=== PATIENT | female | born 1970 | race Caucasian/White ===

== ENCOUNTER 2018-06-16 00:41 | Emergency (ER) | payer OTHER ==
--- OUTSIDE RECORDS SUMMARY | 2018-06-16 00:43 | XMS REPORT | Clinical Summary ---
:1970 Author Organization [facility] Address [address] [place] [address] Care Team Providers Name Role Phone Moe Manriquez MD Primary Care Provider Allergies Active Allergy Reactions Severity Noted Date Comments Codeine 05/12/2017 Propoxyphene N-Acetaminophen 05/12/2017 Levofloxacin 05/12/2017 Pregabalin 05/12/2017 Morphine (Pf) 05/12/2017 Penicillins 05/12/2017 Medications No known medications Active Problems No known active problems Family History Medical History Relation Name Comments Diabetes Father Hypertension Father Diabetes Mother Heart disease Mother Hypertension Mother Relation Name Status Comments Father Mother Social History Tobacco Use Types Packs/Day Years Used Date Never Assessed Sex Assigned at Date Recorded Not on file Job Start Date Occupation Industry Not on file Not on file Not on file Travel History Travel Start Travel End No recent travel history available. Last Filed Vital Signs Not on file Plan of Treatment Health Maintenance Due Date Last Done Comments MMR VACCINES (1 of 1 - Standard 1970 series) VARICELLA VACCINES (1 of 2 - 2-dose 1982 adolescent series) CERVICAL CANCER SCREENING 1990 INFLUENZA VACCINE 02/23/2018 HEPATITIS B VACCINES Aged Out No longer eligible based on patient's age to complete this topic IPV VACCINES Aged Out No longer eligible based on patient's age to complete this topic MENINGOCOCCAL VACCINE Aged Out No longer eligible based on patient's age to complete this topic Results Not on fileafter 06/15/2017 Insurance Payer Benefit Plan / Group Subscriber ID Type Phone Address AETNA AETNA PPO OPEN CHOICE xxxxxxxxx PPO Advance Directives Patient has advance care planning documents on file. For more information, please contact:Darshan [address] [place] [address]
[2018-06-16] MEDS ORDERED: HYDROCODONE/APAP 5/325 MG TAB ONE (01:08)
[2018-06-16] MEDS ORDERED: LIDOCAINE 1% MPF 5 ML VIAL ONE (01:26)
[2018-06-16] MEDS ORDERED: LIDOCAINE 1% MPF 2 ML AMPULE ONE (02:04)
[2018-06-16] MEDS ORDERED: SMZ./TMP. 800/160 MG TABLET ONE (02:22)
[2018-06-16] MEDS ORDERED: CLINDAMYCIN HCL 150 MG CAP ONE (02:22)
[2018-06-16] MEDS ORDERED: TETANUS & DIPHTHERIA TOX,ADULT 0.5 ML VIAL ONE (02:39)
--- NOTE | 2018-06-16 02:39 | EDPHYS ---
Physician Documentation [facility] Name: Fanta Mcfarlane Age: 48 yrs Sex: Female : 1970 Arrival Date: 06/16/2018 Time: 00:44 Bed 24 Private MD: Moe Manriquez V ED Physician Clifford Herndon HPI: 06/16 02:34 This 48 yrs old Female presents to ER via Ambulatory with complaints of Dog jmm Bite. 02:34 The patient was bitten on the lower lip. Onset: The symptoms/episode began/occurred jmm acutely. Animal information: Animal's vaccinations are up to date. Secondary to the bite the patient reports This is a 48 year old female with a history of hlp that presents to the ED with a lower lip laceration after attempting to kiss her dog. Patient is not utd on tetanus immunization. . 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 N/A - Hysterectomy kr2 Historical: - Allergies: 00:59 Ampicillin; kr2 00:59 Codeine; kr2 00:59 Darvocet-N 100; kr2 00:59 Levaquin; kr2 00:59 Morphine; kr2 00:59 Demerol; kr2 - Home Meds: 01:06 atorvastatin oral oral [Active]; pantoprazole oral oral [Active]; amitriptyline Oral kr2 [Active]; aspirin 81 mg oral TbEC [Active]; Dulcolax Oral [Active]; Diurex oral oral [Active]; B-12 DOTS oral oral [Active]; Vitamin D3 oral oral [Active]; Magnesium Oxide Oral [Active]; Super B Maxi Complex oral oral [Active]; Baclofen Oral [Active]; Probiotic oral oral [Active]; Melatonin Oral [Active]; Turemic [Active]; - PMHx: 00:59 Degenerative disc disease; Hyperlipidemia; Diverticulitis; kr2 - PSHx: 00:59 Colon resection; Pelvicoscopy; Hysterectomy; Cysts removal; Carpal Tunnel Repair; kr2 - Immunization history:: Adult Immunizations unknown. - Social history:: Smoking status: Patient/guardian denies using tobacco. - Ebola Screening: : No symptoms or risks identified at this time. ROS: 02:34 Constitutional: Negative for fever, chills, and weight loss, Cardiovascular: Negative jmm for chest pain, palpitations, and edema, Respiratory: Negative for shortness of breath, cough, wheezing, and pleuritic chest pain. 02:34 Skin: Positive for laceration(s). 02:34 All other systems are negative. Exam: 02:34 Constitutional: This is a well developed, well nourished patient who is awake, alert, jmm and in no acute distress. 02:34 Eyes: EOMI, no conjunctival erythema appreciated ENT: Moist Mucus Membranes Chest/axilla: Normal chest wall appearance and motion. Cardiovascular: Regular rate and rhythm. No edema appreciated Respiratory: Normal respirations, no respiratory distress appreciated Abdomen/GI: Non distended, soft Back: Normal ROM MS/ Extremity: Moves all extremities, no obvious deformities appreciated, no edema noted to the lower extremities Neuro: Awake and alert, normal gait 02:34 Head/face: 2 cm laceration noted ot the lower lip. does not appear to cross the armin border. I cm laceration noted to the oral mucosas of the lower lip. 02:34 Skin: lacerations noted to the lower lip. 02:34 Neuro: Orientation: is normal, Mentation: is normal, Memory: is normal. Vital Signs: 01:09 BP 133 / 67; Pulse 105; Resp 18; Temp 98; Pulse Ox 95% on R/A; Weight 83.46 kg; Height kr2 5 ft. 7 in. (170.18 cm); Pain 10/10; 03:06 BP 132 / 78; Pulse 78; Resp 16; Pulse Ox 99% on R/A; Pain 0/10; ls4 01:09 Body Mass Index 28.82 (83.46 kg, 170.18 cm) kr2 Laceration: 02:34 Wound Repair of 2cm ( 0.8in ) subcutaneous laceration to lower lip. [facility] neuro/vascular/tendon intact. Anesthesia: Local anesthetic administered with 2 mls of 1% lidocaine. Wound prep: Extensive cleansing with betadine by me, Copious irrigation. Skin closed with 5 6-0 Prolene using simple sutures and sterile technique. Patient tolerated well. MDM: 00:59 [facility]. [facility] 02:34 Data reviewed: vital signs, nurses notes. Counseling: I had a detailed discussion with [facility] the patient and/or guardian regarding: the historical points, exam findings, and any diagnostic results supporting the discharge/admit diagnosis, the need for outpatient follow up, to return to the emergency department if symptoms worsen or persist or if there are any questions or concerns that arise at home. ED course: patient advised of the risk of infection due to dog bite and given strict return precautions. patient understood and agrees with the plan of care. . Administered Medications: 01:19 CANCELLED (Duplicate Order): Marcaine (0.25 %) 5 ml Infiltration once bb 02:09 Drug: Lidocaine (1 %) 5 ml {Note: administered by Isaac PA.} Volume: 5 ml; Route: ls4 Infiltration; 02:41 Follow up: Response: No adverse reaction ls4 02:10 Drug: Marcaine (0.5 %) 1 ml {Note: administered by Isaac PA.} Volume: 10 ml; Route: ls4 Infiltration; 02:40 Follow up: Response: No adverse reaction ls4 02:28 Drug: Bactrim (160 mg-800 mg (DS) 1 tablet Route: PO; ls4 02:41 Follow up: Response: No adverse reaction ls4 02:28 Drug: Clindamycin 300 mg Route: PO; ls4 02:41 Follow up: Response: No adverse reaction ls4 02:29 Drug: Tetanus-Diphtheria Toxoid Adult 0.5 ml {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 Exp: ls4 07/13/2020. Lot #: [id number]. } Route: IM; Site: left deltoid; 02:52 Follow up: Response: No adverse reaction ls4 Disposition: 05:17 Co-signature as Attending Physician, Clifford Herndon MD I agree with the assessment and tw4 plan of care. Disposition: 06/16/18 02:39 Discharged to Home. Impression: Lower lip laceration, Dog Bite. - Condition is Stable. - Discharge Instructions: Facial Laceration, Animal Bite. - Prescriptions for Clindamycin HCl 300 mg Oral Capsule - take 1 capsule by ORAL route every 6 hours for 10 days; 40 capsule. Bactrim DS 800- 160 mg Oral Tablet - take 1 tablet by ORAL route every 12 hours for 10 days; 20 tablet. - Medication Reconciliation Form, Thank You Letter, Antibiotic Education, Prescription Opioid Use form. - Follow up: Leonard Mendoza MD; When: 2 - 3 days; Reason: Recheck today's complaints, Continuance of care, Re-evaluation by your physician. Signatures: Isaac Restrepo PA PA jmm Ballard, Brenda, RN RN Nadja Webb RN RN kr2 Clifford Herndon MD MD tw4 Carmen Hamilton RN RN ls4 Corrections: (The following items were deleted from the chart) 01:19 01:19 Marcaine (0.25 %) 5 ml Infiltration once ordered. brittni elkins 03:07 02:39 06/16/2018 02:39 Discharged to Home. Impression: Lower lip laceration; Dog Bite. ls4 Condition is Stable. Forms are Medication Reconciliation Form, Thank You Letter, Antibiotic Education, Prescription Opioid Use. Follow up: Leonard Mendoza; When: 2 - 3 days; Reason: Recheck today's complaints, Continuance of care, Re-evaluation by your physician. [place]
--- NOTE | 2018-06-16 02:39 | ER ---
Nurse's Notes [facility] Name: Fanta Mcfarlane Age: 48 yrs Sex: Female : 1970 Arrival Date: 06/16/2018 Time: 00:44 Bed 24 Private MD: Moe Manriquez V Diagnosis: Lower lip laceration;Dog Bite Presentation: 06/16 00:54 Presenting complaint: Patient states: "It was my fault, I was messing with the dog, she kr2 was growling and I still got in her face and she bit me". Transition of care: patient was not received from another setting of care. Onset of symptoms was June 16, 2018 at 00:10. Risk Assessment: Do you want to hurt yourself or someone else? Patient reports no desire to harm self or others. Initial Sepsis Screen: Does the patient meet any 2 criteria? No. Patient's initial sepsis screen is negative. Does the patient have a suspected source of infection? No. Patient's initial sepsis screen is negative. Care prior to arrival: None. 00:54 Method Of Arrival: Ambulatory kr2 00:54 Acuity: MANSI 3 kr2 Triage Assessment: 01:06 Bite description: bite sustained to lower lip and lower armin border by a dog, kr2 animal information: vaccination(s) is current, was sustained 30-60 minutes ago. General: Appears in no apparent distress. uncomfortable, Behavior is cooperative, anxious, crying. Pain: Complains of pain in mouth Pain currently is 10 out of 10 on a pain scale. Quality of pain is described as burning, aching, tender, throbbing, Is continuous, Alleviated by nothing. Aggravated by touch. 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 N/A - Hysterectomy kr2 Historical: - Allergies: 00:59 Ampicillin; kr2 00:59 Codeine; kr2 00:59 Darvocet-N 100; kr2 00:59 Levaquin; kr2 00:59 Morphine; kr2 00:59 Demerol; kr2 - Home Meds: 01:06 atorvastatin oral oral [Active]; pantoprazole oral oral [Active]; amitriptyline Oral kr2 [Active]; aspirin 81 mg oral TbEC [Active]; Dulcolax Oral [Active]; Diurex oral oral [Active]; B-12 DOTS oral oral [Active]; Vitamin D3 oral oral [Active]; Magnesium Oxide Oral [Active]; Super B Maxi Complex oral oral [Active]; Baclofen Oral [Active]; Probiotic oral oral [Active]; Melatonin Oral [Active]; Turemic [Active]; - PMHx: 00:59 Degenerative disc disease; Hyperlipidemia; Diverticulitis; kr2 - PSHx: 00:59 Colon resection; Pelvicoscopy; Hysterectomy; Cysts removal; Carpal Tunnel Repair; kr2 - Immunization history:: Adult Immunizations unknown. - Social history:: Smoking status: Patient/guardian denies using tobacco. - Ebola Screening: : No symptoms or risks identified at this time. Screenin:10 Abuse screen: Denies threats or abuse. Denies injuries from another. Nutritional kr2 screening: No deficits noted. Tuberculosis screening: No symptoms or risk factors identified. Fall Risk None identified. Assessment: 01:30 General: Appears uncomfortable. Pain: Complains of pain in mouth and lower armin ls4 border and lower lip Pain currently is 7 out of 10 on a pain scale. Neuro: No deficits noted. Cardiovascular: No deficits noted. Respiratory: No deficits noted. Derm: Skin is intact, laceration to lower lip Skin is pink, warm \\T\\ dry. Reports pain that is 7 out of 10 on a pain scale. since dog bite. Musculoskeletal: No deficits noted. 02:51 Reassessment: Patient and/or family updated on plan of care and expected duration. Pain ls4 level reassessed. Patient is alert, oriented x 3, equal unlabored respirations, skin warm/dry/pink. see PA note for lac repair. Pt tolerated well. Pt denies pain. . Vital Signs: 01:09 BP 133 / 67; Pulse 105; Resp 18; Temp 98; Pulse Ox 95% on R/A; Weight 83.46 kg; Height kr2 5 ft. 7 in. (170.18 cm); Pain 10/10; 03:06 BP 132 / 78; Pulse 78; Resp 16; Pulse Ox 99% on R/A; Pain 0/10; ls4 01:09 Body Mass Index 28.82 (83.46 kg, 170.18 cm) kr2 ED Course: 00:44 Patient arrived in ED. es 00:44 Moe Manriquez MD is Private Physician. es 00:53 Isaac Restrepo PA is PHCP. [facility] 00:53 Clifford Herndon MD is Attending Physician. jm 00:54 Nadja Blake, MONET is Primary Nurse. kr2 00:56 Triage completed. kr2 01:10 Arm band placed on. kr2 01:12 Patient has correct armband on for positive identification. Bed in low position. Call kr2 light in reach. Side rails up X 1. Adult w/ patient. Pulse ox on. NIBP on. Door closed. Head of bed elevated. 01:28 police department called to notify animal control of dog bite. Dispatcher took ls4 information and will report to his [place]. Pt states her dog does have rabies vaccination. 01:31 No provider procedures requiring assistance completed. ls4 02:38 Leonard Mendoza MD is Referral Physician. jmm 03:06 Patient did not have IV access during this emergency room visit. ls4 Administered Medications: 01:19 CANCELLED (Duplicate Order): Marcaine (0.25 %) 5 ml Infiltration once bb 02:09 Drug: Lidocaine (1 %) 5 ml {Note: administered by Isaac STEPHEN} Volume: 5 ml; Route: ls4 Infiltration; 02:41 Follow up: Response: No adverse reaction ls4 02:10 Drug: Marcaine (0.5 %) 1 ml {Note: administered by Isaac STEPHEN} Volume: 10 ml; Route: ls4 Infiltration; 02:40 Follow up: Response: No adverse reaction ls4 02:28 Drug: Bactrim (160 mg-800 mg (DS) 1 tablet Route: PO; ls4 02:41 Follow up: Response: No adverse reaction ls4 02:28 Drug: Clindamycin 300 mg Route: PO; ls4 02:41 Follow up: Response: No adverse reaction ls4 02:29 Drug: Tetanus-Diphtheria Toxoid Adult 0.5 ml {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 Exp: ls4 07/13/2020. Lot #: [id number]. } Route: IM; Site: left deltoid; 02:52 Follow up: Response: No adverse reaction ls4 Outcome: 02:39 Discharge ordered by . jm 03:05 Discharged to home ambulatory, with family. ls4 03:05 Condition: good 03:05 Discharge instructions given to patient, family, Instructed on discharge instructions, follow up and referral plans. no drinking with medication, no driving heavy equipment, medication usage, safety practices, Demonstrated understanding of instructions, follow-up care, medications, Prescriptions given X 2. 03:07 Patient left the ED. ls4 Signatures: Isaac Restrepo PA PA jmm Salyer, Edna es Reaves, Karey, RN RN kr2 Carmen Hamilton RN RN ls4 Magdalena Mittal RN bb
[2018-06-16 05:30] VITALS: TEMP 98
[2018-06-16 05:31] VITALS: BP 132/78; O2SAT 99
== END 2018-06-16 03:07 | disposition home or self-care (01) ==
LOC: ER 00:41
PROC: 0CQ1XZZ Repair Lower Lip, External Approach (ICD-10-PCS; principal; 2018-06-16)
DX: S01.511A Laceration without foreign body of lip, initial encounter (principal); W54.0XXA Bitten by dog, initial encounter; Y93.89 Activity, other specified; Y92.9 Unspecified place or not applicable; Z23 Encounter for immunization; Z79.82 Long term (current) use of aspirin; Z88.1 Allergy status to other antibiotic agents; Z88.5 Allergy status to narcotic agent; E78.5 Hyperlipidemia, unspecified
CPT/HCPCS: 90714; 99283; J2001

== ENCOUNTER 2021-01-01 14:13 | Inpatient (IN) | payer OTHER ==
--- OUTSIDE RECORDS SUMMARY | 2021-01-01 14:17 | XMS REPORT | Continuity of Care Document ---
:1970 Author Organization [facility] t Address [address] [place] [address] Care Team Providers Name Role Phone Declan NAIR Primary Care Physician Only, Test Attending Clinician Unavailable Doctor Unassigned, Name Attending Clinician Unavailable Problems This patient has no known problems. Allergies, Adverse Reactions, Alerts Allergy Allergy Status Severity Reaction(s) Onset Inactive Treating Comm ents Source Name Type Date Date Clinician Codeine [facility]i Active 2016-07 [place] ty to 0-18 [facility] adverse 00:00: st reaction 00 s to drug Propoxyp [facility] Active 2016-07 [place] ty to 0-18 [facility] N-Acetam adverse 00:00: st inophen reaction 00 s to drug Levoflox [place] Active 2016-07 [place] ty to 0-18 [facility] adverse 00:00: st reaction 00 s to drug Pregabal [facility] Active 2016-07 [place] ty to 0-18 [facility] adverse 00:00: st reaction 00 s to drug Morphine [facility] Active 2016-07 [place] (Pf) ty to 0-18 [facility] adverse 00:00: st reaction 00 s to drug Penicill [facility] Active 2016-07 [place] ty to 0-18 [facility] adverse 00:00: st reaction 00 s to drug Family History Family Member Diagnosis Comments Start Date Stop Date Source Natural mother Diabetes [place] [facility] Natural mother Heart disease [place] [facility] Natural mother Hypertension [place] [facility] Natural father Diabetes [place] [facility] Natural father Hypertension [facility] Social History Social Habit Start Date Stop Date Quantity Comments Source Sex Ass[birth year] Darshan Hernandez [facility]ist 00:00:00 00:00:00 Medications This patient has no known medications. Procedures This patient has no known procedures. Plan of Care Planned Activity Planned Date Details Comments Source Future Scheduled 2021-02-23 INFLUENZA VACCINE [place] [facility] 00:00:00 [code = INFLUENZA VACCINE] Future Scheduled 2019 BREAST CANCER [facility]od[facility] Test 00:00:00 SCREENING [code = BREAST CANCER SCREENING] Future Scheduled 2019 COLONOSCOPY SCREENING [place] [facility] 00:00:00 [code = COLONOSCOPY SCREENING] Future Scheduled 2019 SHINGLES VACCINES [place] [facility] 00:00:00 (#1) [code = SHINGLES VACCINES (#1)] Future Scheduled 1990 Screening for [facility] thodist Test 00:00:00 malignant neoplasm of cervix (procedure) [code = 894940346] Future Scheduled 1981 COVID-19 VACCINE (1) [facility] 00:00:00 [code = COVID-19 VACCINE (1)] Encounters Start End Encounter Admission Attending Care Care Encounter Source Date/Time Date/Time Type Type Clinicians Facility Department ID 2020-07-03 2020-07-03 Laboratory Only, Adc [facility] [id number] 08:03:29 08:18:29 Only Test [place] [id number] [place] [id number] [place] [id number] 2020-07-03 2020-07-03 Orders Doctor HUGO [id number] 00:00:00 00:00:00 Only Unassigned, [place] [id number] [place] [facility] [id number] Results This patient has no known results.
[2021-01-01 15:00] LABS: Absolute Lymphocytes (CBC) 2.4 K/uL (0.7-4.9); Basophils % 0.8 % (0-1.3); Hematocrit 38.9 % (36.0-45.0); Lymphocytes % 27.7 % (15.3-44.8); MPV 7.6 fL (7.6-11.3); RBC Red Blood Cell Count 4.26 M/uL (3.86-4.86)
[2021-01-01 15:24] LABS: ALT/SGPT 53 U/L (12-78); AST/SGOT 38 U/L (15-37); Albumin 3.8 g/dL (3.4-5.0); Alkaline Phosphatase 103 U/L (45-117); BUN Blood Urea Nitrogen 20 mg/dL (7-18); Bicarbonate 25 mmol/L (21-32); Bilirubin Direct < 0.1 mg/dL (0-0.2); Bilirubin Total 0.4 mg/dL (0.2-1.0); Glucose Level 139 mg/dL (74-106); Lipase 98 U/L (73-393); Potassium 4.1 mmol/L (3.5-5.1); Protein, Total 7.6 g/dL (6.4-8.2); Sodium Level 143 mmol/L (136-145)
[2021-01-01] MEDS ORDERED: ONDANSETRON 4 MG/2 ML VIAL ONE (15:48)
[2021-01-01] MEDS ORDERED: NA CHLORIDE 0.9% 1,000 ML ONE (15:48)
[2021-01-01] MEDS ORDERED: PROMETHAZINE INJ 25 MG/ML AMP ONE ×2 (15:50→22:50)
--- NOTE | 2021-01-01 16:19 | RAD REPORT ---
EXAM DESCRIPTION: CTAbdomen Pelvis W Contrast - 01/01/2021 4:09 pm CLINICAL HISTORY: Abdominal pain. hematochezia;Abd pain COMPARISON: Abdomen Pelvis W Contrast dated 05/06/2017; CT ABD PELVIS W CONTRAST dated 09/30/2015; C T ABD PELVIS W CONTRAST dated 10/29/2014; CT ABD PELVIS W CONTRAST dated 01/29/2014 TECHNIQUE: Biphasic CT imaging of the abdomen and pelvis was performed with 100 ml non-ionic IV cont rast. All CT scans are performed using dose optimization technique as appropriate and may include automated exposure control or mA/KV adjustment according to patient size. FINDINGS: The lung bases are clear. The liver demonstrates diffuse fatty infiltration. The spleen, pancreas, adrenal glands and kidneys a re within normal limits. No bowel obstruction, free air, free fluid or abscess. The appendix is normal. Postsurgical changes are present involving the sigmoid colon. No evidence of significant lymphadenopathy. No suspicious bony findings. IMPRESSION: No acute intra-abdominal or pelvic finding. Diffuse fatty liver.
--- NOTE | 2021-01-01 16:44 | EDPHYS ---
Physician Documentation [facility] Name: Fanta Mcfarlane Age: 50 yrs Sex: Female : 1970 Arrival Date: 01/01/2021 Time: 14:16 Bed 14 Private MD: Moe Manriquez V ED Physician Raciel Woodall HPI: 01/01 14:59 This 50 yrs old Female presents to ER via Ambulatory with complaints of jr8 Bloody Stools. 14:59 Onset: The symptoms/episode began/occurred acutely, today. Modifying factors: The jr8 symptoms are alleviated by nothing, The symptoms are aggravated by bowel movement. Associate signs and symptoms: Pertinent positives: abdominal pain in the right lower quadrant. The patient has not experienced similar symptoms in the past. The patient has been recently seen by a physician:. Patient stated that she had colonoscopy this past for routine check as she had diverticulitis with resection in past and precancerous polyps. Stated that Dr. Joseph took one other polyp out and a biopsy of some scar tissue that she knows of but without any other complications. Stated that a few days ago had right sided abdominal pain and bloating feeling. Today without pain but had two bloody bowel movements . [employer]ER: 14:57 LMP N/A - Hysterectomy tw2 Historical: - Allergies: 14:35 Ampicillin; tw2 14:35 Codeine; tw2 14:35 Darvocet-N 100; tw2 14:35 Demerol; tw2 14:35 Levaquin; tw2 14:35 Morphine; tw2 14:55 Zofran; "doesnt work"; tw2 - Home Meds: 14:55 atorvastatin 10 mg oral tab 1 tab once daily [Active]; pantoprazole 40 mg oral TbEC 1 tw2 tab once daily [Active]; amitriptyline 25 mg Oral tab 1 tab once daily [Active]; aspirin 81 mg Oral chew 1 tab once daily [Active]; Dulcolax (bisacodyl) 5 mg Oral TbEC 1 tab [Active]; diurex ultra [Active]; Vitamin B-12 1,000 mcg Oral tab [Active]; magnesium oxide 500 mg Oral cap [Active]; baclofen 20 mg Oral tab 1 tab 3 times per day [Active]; Super B Complex + C 150 mg oral tab [Active]; probiotic multi enzyme [Active]; melatonin 3 mg Oral tab [Active]; tumeric 1000 mg [Active]; tramadol 50 mg Oral tab 1 tab every 4 hours [Active]; - PMHx: 14:35 Diverticulitis; Degenerative disc disease; Hyperlipidemia; tw2 - PSHx: 14:35 Colon resection; Pelvicoscopy; Hysterectomy; Cysts removal; Carpal Tunnel Repair; tw2 14:55 fibroid removed from R cheek; cyst removed from groin; left breast biopsy, benign; tw2 - Immunization history:: Adult Immunizations. - Social history:: Smoking status: . ROS: 14:59 Eyes: Negative for injury, pain, redness, and discharge, ENT: Negative for injury, jr8 pain, and discharge, Neck: Negative for injury, pain, and swelling, Cardiovascular: Negative for chest pain, palpitations, and edema, Respiratory: Negative for shortness of breath, cough, wheezing, and pleuritic chest pain, Back: Negative for injury and pain, MS/Extremity: Negative for injury and deformity, Skin: Negative for injury, rash, and discoloration, Neuro: Negative for headache, weakness, numbness, tingling, and seizure. 14:59 Abdomen/GI: Positive for abdominal pain, hematochezia . Exam: 14:59 Eyes: Pupils equal round and reactive to light, extra-ocular motions intact. Lids and jr8 lashes normal. Conjunctiva and sclera are non-icteric and not injected. Cornea within normal limits. Periorbital areas with no swelling, redness, or edema. ENT: Nares patent. No nasal discharge, no septal abnormalities noted. Tympanic membranes are normal and external auditory canals are clear. Oropharynx with no redness, swelling, or masses, exudates, or evidence of obstruction, uvula midline. Mucous membranes moist. Neck: Trachea midline, no thyromegaly or masses palpated, and no cervical lymphadenopathy. Supple, full range of motion without nuchal rigidity, or vertebral point tenderness. No Meningismus. Cardiovascular: Tachycardic with a normal S1 and S2. No gallops, murmurs, or rubs. Normal PMI, no JVD. No pulse deficits. Respiratory: Lungs have equal breath sounds bilaterally, clear to auscultation and percussion. No rales, rhonchi or wheezes noted. No increased work of breathing, no retractions or nasal flaring. Abdomen/GI: Soft, non-tender, with normal bowel sounds. No distension or tympany. No guarding or rebound. No evidence of tenderness throughout. Back: No spinal tenderness. No costovertebral tenderness. Full range of motion. Skin: Warm, dry with normal turgor. Normal color with no rashes, no lesions, and no evidence of cellulitis. MS/ Extremity: Pulses equal, no cyanosis. Neurovascular intact. Full, normal range of motion. Neuro: Awake and alert, GCS 15, oriented to person, place, time, and situation. Motor strength 5/5 in all extremities. Sensory grossly intact. 14:59 Constitutional: The patient appears alert, awake, anxious. Vital Signs: 14:25 BP 126 / 99; Pulse 133; Resp 19; Temp 97.9(TE); Pulse Ox 97% on R/A; tw2 15:36 BP 121 / 79; Pulse 110; Resp 22 S; Pulse Ox 96% on R/A; jd3 17:06 Pulse 107; Resp 18 S; Pulse Ox 99% on R/A; jd3 17:37 BP 126 / 75; Pulse 110; Resp 17 S; Pulse Ox 97% on R/A; jd3 18:36 BP 102 / 83; Pulse 97; Resp 18 S; Pulse Ox 98% on R/A; jd3 19:33 BP 109 / 67; Pulse 104; Resp 16; Pulse Ox 99% ; jm8 20:10 BP 131 / 70; Pulse 101; Resp 16; Pulse Ox 99% on R/A; jm8 20:44 BP 106 / 65; Pulse 94; Resp 16; Pulse Ox 97% on R/A; jm8 21:00 BP 100 / 73; Pulse 104; Resp 16; Pulse Ox 99% on R/A; jm8 22:00 BP 94 / 54; Pulse 110; Resp 20; Pulse Ox 97% on R/A; jm8 23:00 BP 89 / 50; Pulse 96; Resp 16; Pulse Ox 100% on R/A; jm8 01/02 00:00 BP 95 / 61; Pulse 79; Resp 16; Pulse Ox 100% on R/A; jm8 00:14 BP 95 / 52; Pulse 79; Resp 16; Pulse Ox 100% on R/A; jm8 MDM: 01/01 14:28 Patient medically screened. jr8 16:42 Data reviewed: vital signs, nurses notes, lab test result(s), radiologic studies, CT jr8 scan, and as a result, I will admit patient. Data interpreted: Pulse oximetry: on room air is 96 %. Interpretation: normal. Counseling: I had a detailed discussion with the patient and/or guardian regarding: the historical points, exam findings, and any diagnostic results supporting the discharge/admit diagnosis, lab results, radiology results, the need for further work-up and treatment in the hospital. 21:54 ED course: Patient became hypotensive and had another bloody bowel movement. Patient jr8 receiving 2 units blood down here now and will be transfused at faster rate and will be upgraded to ICU. wind operations supervisor notified along with Dr. Joseph. 22:10 ED course: Patient continues to decline. More pale and tried to get out of bed to use jr8 restroom after I instructed her that bedside commode is an absolutely necessary at this point. Patient has syncopal episode on toilet with present. No injury. I told them again not to get out of bed. I have also escalated to have more blood given along with FFP. Dr. Joseph called again at this point patient needs to be transferred to higher level of care for embolic intervention or general surgery . ED course: of patient has been continually agitated about situation and why they first had not gone up stairs. Then he questioned why blood is taking so long and now why we didn't transfer earlier. I explained to him the best that I could that patient came in with normal H/H. No indication of blood transfusion at that time. Dr. Manriquez saw patient as well and was admitted but that I chose to keep her down here for close observation because she looked more pale then I liked and had them redraw H/H. That's when I saw her drop by about 3 points. Explained to them at that time that we needed to start blood given the bowel movements continued and that she is now at 10.[address] Joseph agreed with and that I wanted to further watch her down here. Further explained that we upgraded her to ICU and Dr. Joseph had been kept in loop entire time. That we needed to give more blood and FFP to stabilize now that she is hypotensive. Would activate mass transfusion and trying to transfer. Patients continued to be very rude and argumentative. At that point I left the room to continue transfer as there was no reasoning with him. 22:56 ED course: Talked To Dr. Joseph again and will continue transfer process but he wants jrAry to try an unpreped colonoscopy to see if we can stop any of the bleeding. Told him that is fine but that he needs to come talk to the to help him better understand the situation. Dr. Joseph is on his way now . 23:42 ED course: No beds at [facility], all [facility] facilities, all [facility] facilities, and jr8 both [facility] facilities. [facility] declined just now as well . ED course: Sebastian and MARTINE at saturation as well . 01/02 00:59 Transition of care: After a detail discussion of the patient's case, care is jr8 transferred to Rafael Real MD. ED course: Dr. Joseph took patient to endoscopy sweet to perform colonoscopy to see if he could get to the bleed. 01/01 14:29 Order name: Basic Metabolic Panel; Complete Time: 15:24 [facility] 01/01 14:29 Order name: CBC with Diff; Complete Time: 15:24 [facility] 01/01 14:29 Order name: Hepatic Function; Complete Time: 15:24 01/01 14:29 Order name: Lipase; Complete Time: 15:24 [facility] 01/01 15:44 Order name: Type And Screen [facility] 01/01 15:45 Order name: Type and Screen [facility] 01/01 17:50 Order name: SARS-COV-2 RT PCR; Complete Time: 17:52 [place] 01/01 18:41 Order name: Hemoglobin [facility] 01/01 18:41 Order name: Hematocrit [facility] 01/01 19:11 Order name: Hemoglobin; Complete Time: 19:27 [facility] 01/01 19:11 Order name: Hematocrit; Complete Time: 19:27 [facility] 01/01 20:20 Order name: PRBC [facility] 01/01 20:42 Order name: Hemoglobin; Complete Time: 21:01 [facility] 01/01 14:29 Order name: IV Saline Lock; Complete Time: 14:52 01/01 14:29 Order name: Labs collected and sent; Complete Time: 14:51 [facility] 01/01 15:25 Order name: CT Abd/Pelvis - IV Contrast Only; Complete Time: 16:26 [facility] 01/01 17:24 Order name: CONS Physician Consult [facility]WI 01/02 05:06 Order name: CBC with Automated Diff; Complete Time: 13:01 EDMS 01/02 05:07 Order name: Basic Metabolic Panel; Complete Time: 13:01 EDMS Administered Medications: 01/01 15:43 Drug: NS 0.9% 1000 ml Route: IV; Rate: 1000 ml; Site: left antecubital; jd3 15:44 Drug: Promethazine 12.5 mg Route: IVP; Site: left antecubital; jd3 19:35 Follow up: Response: No adverse reaction [facility] 17:06 Drug: Cefepime 1 grams Route: IVPB; Rate: 200 ml/hr; Infused Over: 30 mins; Site: left jd3 antecubital; 19:34 Follow up: Response: No adverse reaction; IV Status: Completed infusion [facility] 17:06 Drug: Flagyl (metroNIDAZOLE) 500 mg Volume: 100 ml; Route: IVPB; Rate: 200 ml/hr; jd3 Infused Over: 30 mins; Site: left antecubital; 19:34 Follow up: Response: No adverse reaction; IV Status: Completed infusion 8 Disposition: 01/01/21 16:43 Hospitalization ordered by Moe Manriquez for Observation. Preliminary diagnosis is Gastrointestinal hemorrhage, unspecified - Lower GI. - Bed requested for Intensive Care Unit. - Status is Observation. iw - Condition is Stable. - Problem is new. - Symptoms are unchanged. Addendum: 01/04/2021 07:04 Co-signature as Attending Physician, Raciel Woodall MD. r n Signatures: Dispatcher [employer] [facility] Ida Elizabeth RN RN dw Munoz, Edgar, RN RN em Williams, Irene, RN RN iw Nieto, Roman, MD MD rn Roszak, Josh, PA PA jr8 Christy Alaniz RN RN tl1 Ashley Domingo RN RN tw2 Neal Fuentes RN RN jd3 Dharmesh Galarza RN jm8 Corrections: (The following items were deleted from the chart) 01/01 16:52 16:39 CORONAVIRUS+MR.LAB.BRZ ordered. EDMS EDMS 18:36 16:43 Hospitalization Ordered by Moe Manriquez MD for Observation. Preliminary diagnosis dw is Gastrointestinal hemorrhage, unspecified - Lower GI. Bed requested for Telemetry/MedSurg (observation). Status is Observation. Condition is Stable. Problem is new. Symptoms are unchanged. jr8 22:41 18:36 01/01/2021 16:43 Hospitalization Ordered by Moe Manriquez MD for Observation. tl1 Preliminary diagnosis is Gastrointestinal hemorrhage, unspecified - Lower GI. Bed requested for Telemetry/MedSurg (observation). Status is Observation. Condition is Stable. Problem is new. Symptoms are unchanged. dw 22:47 21:54 ED course: Patient became hypotensive and had another bloody bowel movement. jr8 Patient will receive 2 units blood down here now and will be transfused at faster rate and will be upgraded to ICU. wind operations supervisor notified . jr8 01/02 00:02 [id number] 22:41 01/01/2021 16:43 Hospitalization Ordered by Moe Manriquez MD for em Observation. Preliminary diagnosis is Gastrointestinal hemorrhage, unspecified - Lower GI. Bed requested for Telemetry/MedSurg (observation). Status is Observation. Condition is Stable. Problem is new. Symptoms are unchanged. tl1 01/02 00:08 00:02 01/01/2021 16:43 Hospitalization Ordered by Moe Manriquez MD for Observation. em Preliminary diagnosis is Gastrointestinal hemorrhage, unspecified - Lower GI. Bed requested for Intensive Care Unit. Status is Observation. Condition is Stable. Problem is new. Symptoms are unchanged. em 08:47 00:08 01/01/2021 16:43 Hospitalization Ordered by Moe Manriquez MD for Observation. iw Preliminary diagnosis is Gastrointestinal hemorrhage, unspecified - Lower GI. Bed requested for [facility] ER HOLD. Status is Observation. Condition is Stable. Problem is new. Symptoms are unchanged. em 08:57 08:47 01/01/2021 16:43 Hospitalization Ordered by Moe Manriquez MD for Observation. iw Preliminary diagnosis is Gastrointestinal hemorrhage, unspecified - Lower GI. Bed requested for Intensive Care Unit. Status is Observation. Condition is Stable. Problem is new. Symptoms are unchanged. iw 10:06 08:57 01/01/2021 16:43 Hospitalization Ordered by Moe Manriquez MD for Observation. iw Preliminary diagnosis is Gastrointestinal hemorrhage, unspecified - Lower GI. Bed requested for Intensive Care Unit. Status is Observation. Condition is Stable. Problem is new. Symptoms are unchanged. iw
--- NOTE | 2021-01-01 16:44 | ER ---
Nurse's Notes [facility] Name: Fanta Mcfarlane Age: 50 yrs Sex: Female : 1970 Arrival Date: 01/01/2021 Time: 14:16 Bed 14 Private MD: Moe Manriquez V Diagnosis: Gastrointestinal hemorrhage, unspecified-Lower GI Presentation: 01/01 14:25 Chief complaint: Patient states: i had a colonoscopy Wednesday, i was supposed to get the tw2 results tomorrow from Dr. Joseph, and have been fine since then but then today i was outside in the yard and i had to run inside. i had 2 liquid, watery, bloody stools with clots. What i remember from the colonoscopy he removed a polyp but didn't see any precancerous cells this time. In the past i have had a resection and where they removed 18 inches from diverticulitis. I am not really having any pain and have been having bm's since the procedure but after these 2 diarrhea spells I am having a panic attack. Coronavirus screen: At this time, the client does not indicate any symptoms associated with coronavirus-19. Ebola Screen: Patient denies travel to an Ebola-affected area in the 21 days before illness onset. Initial Sepsis Screen: Does the patient meet any 2 criteria? HR > 90 bpm. No. Patient's initial sepsis screen is negative. Does the patient have a suspected source of infection? No. Patient's initial sepsis screen is negative. Risk Assessment: Do you want to hurt yourself or someone else? Patient reports no desire to harm self or others. Onset of symptoms was January 01, 2021. 14:25 Method Of Arrival: Ambulatory tw2 14:25 Acuity: MANSI 3 tw2 Triage Assessment: 14:25 General: Appears in no apparent distress. obese, well groomed, Behavior is cooperative, tw2 appropriate for age, anxious, pt states "i feel like i am having a panic attack over this, where is the bathroom in case i got to go", pt instructed that restroom is right across the [place]. General: Behavior is. Pain: Denies pain. EENT: No signs and/or symptoms were reported regarding the EENT system. Neuro: Level of Consciousness is awake, alert, obeys commands, Oriented to person, place, time, situation. Cardiovascular: Capillary refill < 3 seconds Patient's skin is warm and dry. Respiratory: Airway is patent Respiratory effort is even, unlabored, Respiratory pattern is regular, symmetrical. GI: Reports diarrhea, bloody with clots. : No signs and/or symptoms were reported regarding the genitourinary system. Musculoskeletal: Range of motion: intact in all extremities. ROLL WINDER: 14:57 LMP N/A - Hysterectomy tw2 Historical: - Allergies: 14:35 Ampicillin; tw2 14:35 Codeine; tw2 14:35 Darvocet-N 100; tw2 14:35 Demerol; tw2 14:35 Levaquin; tw 14:35 Morphine; tw 14:55 Zofran; "doesnt work"; tw2 - Home Meds: : atorvastatin 10 mg oral tab 1 tab once daily [Active]; pantoprazole 40 mg oral TbEC 1 tw2 tab once daily [Active]; amitriptyline 25 mg Oral tab 1 tab once daily [Active]; aspirin 81 mg Oral chew 1 tab once daily [Active]; Dulcolax (bisacodyl) 5 mg Oral TbEC 1 tab [Active]; diurex ultra [Active]; Vitamin B-12 1,000 mcg Oral tab [Active]; magnesium oxide 500 mg Oral cap [Active]; baclofen 20 mg Oral tab 1 tab 3 times per day [Active]; Super B Complex + C 150 mg oral tab [Active]; probiotic multi enzyme [Active]; melatonin 3 mg Oral tab [Active]; tumeric 1000 mg [Active]; tramadol 50 mg Oral tab 1 tab every 4 hours [Active]; - PMHx: 14:35 Diverticulitis; Degenerative disc disease; Hyperlipidemia; tw2 - PSHx: 14:35 Colon resection; Pelvicoscopy; Hysterectomy; Cysts removal; Carpal Tunnel Repair; tw2 14:55 fibroid removed from R cheek; cyst removed from groin; left breast biopsy, benign; tw2 - Immunization history:: Adult Immunizations. - Social history:: Smoking status: . Screenin: Abuse screen: Denies threats or abuse. Nutritional screening: No deficits noted. tw2 Tuberculosis screening: No symptoms or risk factors identified. Fall Risk None identified. Assessment: 14:57 Reassessment: see triage assessment. tw2 15:36 Reassessment: Patient appears in no apparent distress at this time. Patient and/or jd3 family updated on plan of care and expected duration. Pain level reassessed. Patient is alert, oriented x 3, equal unlabored respirations, skin warm/dry/pink. pt with dizziness and nausea after walking to restroom. pt assisted into bed and reclined. medicated per order. pt with blood stool, watery, bright red. 17:07 Reassessment: Patient appears in no apparent distress at this time. Patient and/or jd3 family updated on plan of care and expected duration. Pain level reassessed. Patient is alert, oriented x 3, equal unlabored respirations, skin warm/dry/pink. 17:36 Reassessment: Patient appears in no apparent distress at this time. Patient and/or jd3 family updated on plan of care and expected duration. Pain level reassessed. Patient is alert, oriented x 3, equal unlabored respirations, skin warm/dry/pink. awaiting admission, provider at bedside discussing plan of care. pt back to restroom with blood stool, provider notified. 20:03 Reassessment: Patient appears in no apparent distress at this time. Patient and/or jm8 family updated on plan of care and expected duration. Pain level reassessed. Patient is alert, oriented x 3, equal unlabored respirations, skin warm/dry/pink. 21:59 Reassessment: Patient has syncopal episode while on toilet at this time. Patient does jm8 not fall. Patient transferred to wheelchair then to bed. 01/02 00:00 Reassessment: Patient appears in no apparent distress at this time. Patient and/or jm8 family updated on plan of care and expected duration. Pain level reassessed. Patient is alert, oriented x 3, equal unlabored respirations, skin warm/dry/pink. 00:34 Reassessment: patient to surgery at this time. 8 Vital Signs: 01/01 14:25 BP 126 / 99; Pulse 133; Resp 19; Temp 97.9(TE); Pulse Ox 97% on R/A; tw2 15:36 BP 121 / 79; Pulse 110; Resp 22 S; Pulse Ox 96% on R/A; jd3 17:06 Pulse 107; Resp 18 S; Pulse Ox 99% on R/A; jd3 17:37 BP 126 / 75; Pulse 110; Resp 17 S; Pulse Ox 97% on R/A; jd3 18:36 BP 102 / 83; Pulse 97; Resp 18 S; Pulse Ox 98% on R/A; jd3 19:33 BP 109 / 67; Pulse 104; Resp 16; Pulse Ox 99% ; jm8 20:10 BP 131 / 70; Pulse 101; Resp 16; Pulse Ox 99% on R/A; jm8 20:44 BP 106 / 65; Pulse 94; Resp 16; Pulse Ox 97% on R/A; jm8 21:00 BP 100 / 73; Pulse 104; Resp 16; Pulse Ox 99% on R/A; jm8 22:00 BP 94 / 54; Pulse 110; Resp 20; Pulse Ox 97% on R/A; jm8 23:00 BP 89 / 50; Pulse 96; Resp 16; Pulse Ox 100% on R/A; jm8 01/02 00:00 BP 95 / 61; Pulse 79; Resp 16; Pulse Ox 100% on R/A; jm8 00:14 BP 95 / 52; Pulse 79; Resp 16; Pulse Ox 100% on R/A; jm8 ED Course: 01/01 14:16 Patient arrived in ED. mr 14:16 Moe Manriquez MD is Private Physician. mr 14:25 Ashley Domingo, RN is Primary Nurse. tw2 14:25 Arm band placed on. tw2 14:25 Bed in low position. Call light in reach. tw2 14:28 Dallin Garcia PA is PHCP. jr8 14:28 Raciel Woodall MD is Attending Physician. jr8 14:34 Triage completed. tw2 14:52 Inserted saline lock: 22 gauge in left antecubital area, using aseptic technique. Blood jd3 collected. 16:08 CT Abd/Pelvis - IV Contrast Only In Process Unspecified. EDMS 16:42 Moe Manriquez MD is Hospitalizing Provider. jr8 18:37 No provider procedures requiring assistance completed. Patient admitted, IV remains in jd3 place. 18:49 Hemoglobin Sent. jd3 18:49 Hematocrit Sent. jd3 19:11 Inserted saline lock: 18 gauge in left EJ, using aseptic technique. jm8 22:[address] [facility], and [facility]. Spoke with arMarylin Mehta. 22:50 All [facility] facilities declined due to not having ICU beds. ar5 22:[address] [facility] spoke with Rashmi See. ar5 23:04 Initiated transfer to [facility] spoke to Bell. ar5 23:12 Initiated transfer to [facility]. Spoke with Ashley. ar5 23:18 [facility] declined due to not having any ICU beds. ar5 23:35 [facility] declined due to not having IR available. ar5 23:38 Initiated transfer to [facility]. Spoke with Eddie. ar5 23:43 All [facility] campuses declined due to not having any ICU beds available. ar5 Administered Medications: 15:43 Drug: NS 0.9% 1000 ml Route: IV; Rate: 1000 ml; Site: left antecubital; jd3 15:44 Drug: Promethazine 12.5 mg Route: IVP; Site: left antecubital; jd3 19:35 Follow up: Response: No adverse reaction [facility] 17:06 Drug: Cefepime 1 grams Route: IVPB; Rate: 200 ml/hr; Infused Over: 30 mins; Site: left jd3 antecubital; 19:34 Follow up: Response: No adverse reaction; IV Status: Completed infusion [facility] 17:06 Drug: Flagyl (metroNIDAZOLE) 500 mg Volume: 100 ml; Route: IVPB; Rate: 200 ml/hr; jd3 Infused Over: 30 mins; Site: left antecubital; 19:34 Follow up: Response: No adverse reaction; IV Status: Completed infusion [facility] Outcome: 16:43 Decision to Hospitalize by Provider. jr8 18:37 Condition: stable jd3 18:37 Instructed on the need for admit, Demonstrated understanding of instructions. 01/02 10:06 Patient left the ED. iw 10:06 Admitted to ICU accompanied by nurse, accompanied by tech, via stretcher, room er 10, tr6 with oxygen, on monitor, with chart, Report called to nav HEALY Signatures: Dispatcher [employer] Alecia Self Irene, RN RN iw Roszak, Josh, PA PA jr8 Ashley Domingo RN RN tw2 Neal Fuentes RN RN jd3 Robles, Autumn ar5 Dharmesh Galarza RN RN jm8 Ila Bassett RN RN tr6 Corrections: (The following items were deleted from the chart) 01/01 15:45 15:36 Reassessment: Patient appears in no apparent distress at this time. Patient jmounika and/or family updated on plan of care and expected duration. Pain level reassessed. Patient is alert, oriented x 3, equal unlabored respirations, skin warm/dry/pink. pt with dizziness and nausea after walking to restroom. pt assisted into bed and reclined. medicated per order jd3 20:46 20:44 BP 106 / 265; Pulse 94bpm; Resp 16bpm; Pulse Ox 97% RA; [place] re[place] 23:59 22:50 All facilities declined due to not having ICU beds chelo whitney 01/02 00:01 01/01 22:[address] [facility] spoke with Rashmi whitney
[2021-01-01] MEDS ORDERED: CEFEPIME/SWI 1gm 10 ML ONE (17:12)
[2021-01-01] MEDS ORDERED: METRONIDAZOLE 500mg IVPB 500 MG/100 ML BAG IV ONE (17:13)
[2021-01-01 18:58] LABS: Hematocrit 32.8 % (36.0-45.0)
[2021-01-01] MEDS: D5 0.45 NS 1,000 ML IV SCH (19:32)
[2021-01-01] MEDS ORDERED: PROMETHAZINE INJ 25 MG/ML AMP IV PRN (19:32)
[2021-01-01] MEDS ORDERED: D5 0.45 NS 1,000 ML IV ONE (19:56)
[2021-01-01] MEDS ORDERED: NA CHLORIDE 0.9% 100 ML ONE (21:31)
[2021-01-01] MEDS ORDERED: GOLYTELY 4000 ML ONE (22:21)
[2021-01-01] MEDS ORDERED: NA CHLORIDE 0.9% 250 ML ONE ×3 (22:57→23:11)
[2021-01-02] MEDS ORDERED: SUCCINYLCHOLINE 20 MG/ML (10 ML) IV ONE (00:54)
[2021-01-02] MEDS ORDERED: LIDOCAINE 1% MPF 5 ML VIAL ONE (00:56)
[2021-01-02] MEDS ORDERED: propofoL 200 MG/20 ML VIAL IV ONE (00:56)
[2021-01-02] MEDS ORDERED: Phenylephrine HCl 10 MG/ML 1 ML VIAL ONE (00:56)
[2021-01-02] MEDS ORDERED: Ringers Lactate 1,000 ML IV ONE (00:58)
[2021-01-02 00:59] VITALS: BMI 33.3
[2021-01-02] MEDS: METRONIDAZOLE 500mg IVPB 500 MG/100 ML BAG IV SCH ×3 (01:00→17:34)
[2021-01-02] MEDS ORDERED: EPINEPHRINE/PF 1 MG/ML AMP ONE (01:08)
[2021-01-02] MEDS ORDERED: D5 0.45 NS 1,000 ML IV ONE ×3 (02:31→20:54)
[2021-01-02] MEDS ORDERED: METRONIDAZOLE 500mg IVPB 500 MG/100 ML BAG IV ONE ×4 (02:31→20:53)
[2021-01-02 04:58] LABS: Absolute Lymphocytes (CBC) 2.2 K/uL (0.7-4.9); Basophils % 0.4 % (0-1.3); Hematocrit 31.9 % (36.0-45.0); Lymphocytes % 27.2 % (15.3-44.8); MPV 7.7 fL (7.6-11.3); RBC Red Blood Cell Count 3.56 M/uL (3.86-4.86)
[2021-01-02 05:07] LABS: BUN Blood Urea Nitrogen 15 mg/dL (7-18); Bicarbonate 26 mmol/L (21-32); Glucose Level 123 mg/dL (74-106); Potassium 4.4 mmol/L (3.5-5.1); Sodium Level 144 mmol/L (136-145)
[2021-01-02] MEDS: CEFEPIME/SWI 1gm 10 ML IV SCH ×2 (09:00→21:20)
[2021-01-02] MEDS ORDERED: CEFEPIME 1 GM/VIAL IVP SCH (09:00)
[2021-01-02] MEDS ORDERED: CEFEPIME/SWI 1gm 10 ML ONE ×2 (09:46→20:53)
[2021-01-02 11:44] LABS: Absolute Lymphocytes (CBC) 2.6 K/uL (0.7-4.9); Basophils % 0.8 % (0-1.3); Hematocrit 32.8 % (36.0-45.0); Lymphocytes % 30.8 % (15.3-44.8); MPV 7.7 fL (7.6-11.3); RBC Red Blood Cell Count 3.62 M/uL (3.86-4.86)
--- NOTE | 2021-01-02 13:07 | P.HP ---
Certification for Inpatient Patient admitted to: Inpatient With expected LOS: >2 Midnights Practitioner: I am a practitioner with admitting privileges, knowledge of patient current condition, hospital course, and medical plan of care. Services: Services provided to patient in accordance with Admission requirements found in Title 42 Section 412.3 of the Code of Federal Regulations Patient History Date of Service: 01/02/21 Reason for admission: SEVERE LOWER GI BLEED SP COLONOSCOPY. History of Present Illness: ANTHONY HAD COLONSCOPY ABOUT A WEEK AGO, SHE STARTED TO HAVE SEVERE LOWER GI BLEED. CLOTTY DIARRHEA A FEW TIMES. I SAW HER IN ER LAST NIGHT. SHE LOOKED PALE AND BP WAS LOW NORMAL. I ASKED ER DOCTOR TO PUT IN ONE MORE IV AND KEEP HER IN ICU. THEY TRIED TO GET HER TO [facility] BUT THERE WERE NO BEDS. DR. AMBROSE CAME OUT AT 2 AM AND DID COLONOSCOPY, FOUND THE TEAR NEAR CECUM, PUT IN 3 CLIPS. HER HG IS STABLE AND SHE IS STILL WEAK. Allergies levofloxacin [From Levaquin] Allergy (Intermediate, Verified 03/05/14 13:08) Itching/Hives/Rash meperidine HCl [From Demerol] Allergy (Intermediate, Verified 03/05/14 13:08) Itching/Hives/Rash codeine [Codeine] Allergy (Mild, Verified 03/05/14 13:08) Itching morphine Allergy (Mild, Verified 03/05/14 13:08) Nausea/Vomiting ampicillin [Ampicillin] Allergy (Unknown, Verified 03/05/14 13:08) childhood allergy Home Medications: Lansoprazole [Prevacid] 30 mg PO DAILY 12/29/13 Pravastatin [Pravachol*] 40 mg PO DAILY 12/29/13 Ondansetron [Zofran (Odt)*] 4 mg PO Q6H PRN #15 tab 03/10/14 Sulfamethoxazole/Trimethoprim [Bactrim Ds Tablet] 1 each PO BID #10 tablet 03/10/14 Tramadol HCl/Acetaminophen [Ultracet Tablet] 2 each PO Q4HP PRN #40 tablet 03/10/14 - Past Medical/Surgical History Has patient received pneumonia vaccine in the past: No Diabetic: No -: ovarian cyst -: diverticulitis -: hyperlipidemia -: depression -: GERD -: hysterectomy -: carpal tunnel repair -: tendon release in right thumb -: cyst removed from right leg and left breast - Social History Smoking Status: Unknown if ever smoked Alcohol use: No CD- Drugs: No Caffeine use: No Place of Residence: Home Review of Systems 10-point ROS is otherwise unremarkable General: Weakness Physical Examination - Vital Signs Temperature: 98 F Blood Pressure: 122/78 Pulse: 89 Respirations: 16 Pulse Ox (%): 95 - Physical Exam General: Oriented x3, Moderate distress, Other (PALLOR) HEENT: Atraumatic, PERRLA, Mucous membr. moist/pink, EOMI, Sclerae nonicteric Neck: Supple, 2+ carotid pulse no bruit, No LAD, Without JVD or thyroid abnormality Respiratory: Clear to auscultation bilaterally, Normal air movement Cardiovascular: Regular rate/rhythm, Normal S1 S2 Gastrointestinal: Normal bowel sounds, No tenderness Musculoskeletal: No tenderness Integumentary: No rashes Neurological: Normal gait, Normal speech, Normal strength at 5/5 x4 extr, Normal tone, Normal affect Lymphatics: No axilla or inguinal lymphadenopathy - Studies Laboratory Data (last 24 hrs) 01/01/21 14:49: WBC 8.80, Hgb 13.3, Hct 38.9, Plt Count 336 01/01/21 14:49: Sodium 143, Potassium 4.1, BUN 20 H, Creatinine 0.99, Glucose 139 H, Total Bilirubin 0.4, AST 38 H, ALT 53, Alkaline Phosphatase 103, Lipase 98 Assessment and Plan - Problems (Diagnosis) (1) Hemorrhage of colon following colonoscopy Current Visit: Yes Status: Acute Plan: SHE HAD SEVERE BLEEDING. HG IS STABLE AFTER TWO UNITS OF BLOOD. BLEEDING SEEMS TO HAVE STOPPED. WILL KEEP HER ONE MORE DAY BP STILL STAYS BORDERLINE. [facility] HG EVERY 6 HOURS. - Advance Directives Does patient have a Living Will: No Does patient have a Durable POA for Healthcare: No
--- NOTE | 2021-01-02 13:08 | P.PN ---
Subjective Date of Service: 01/02/21 Chief Complaint: SEVERE LOWER GI BLEED SP COLONOSCOPY. Subjective: Improving I SAW HER LAST NIGHT AND THIS AM. SHE IS LOT BETTER. SP CRC AND CLIPPING OF BLEEDER. Physical Examination - Vital Signs Temperature: 98 F Blood Pressure: 122/78 Pulse: 89 Respirations: 16 Pulse Ox (%): 95 - Physical Exam General: Oriented x3, Mild distress HEENT: Atraumatic, PERRLA, EOMI Neck: Supple, JVD not distended Respiratory: Clear to auscultation bilaterally, Normal air movement Cardiovascular: Regular rate/rhythm, Normal S1 S2 Gastrointestinal: Normal bowel sounds, No tenderness Musculoskeletal: No tenderness Integumentary: No rashes Neurological: Normal speech, Normal tone, Normal affect Lymphatics: No axilla or inguinal lymphadenopathy - Studies Laboratory Data (last 24 hrs) 01/01/21 14:49: WBC 8.80, Hgb 13.3, Hct 38.9, Plt Count 336 01/01/21 14:49: Sodium 143, Potassium 4.1, BUN 20 H, Creatinine 0.99, Glucose 139 H, Total Bilirubin 0.4, AST 38 H, ALT 53, Alkaline Phosphatase 103, Lipase 98 Medications List Reviewed: Yes Assessment And Plan - Current Problems (Diagnosis) (1) Hemorrhage of colon following colonoscopy Current Visit: Yes Status: Acute Plan: SHE HAD SEVERE BLEEDING. HG IS STABLE AFTER TWO UNITS OF BLOOD. BLEEDING SEEMS TO HAVE STOPPED. WILL KEEP HER ONE MORE DAY BP STILL STAYS BORDERLINE. [facility] HG EVERY 6 HOURS. CONTINUE WATCH HG. DC IN AM.
--- NOTE | 2021-01-02 14:12 | OP ---
Surgeon: David Joseph MD Procedure Performed: Colonoscopy. Indication For Procedure: Massive lower GI bleed causing hemodynamic compromise. The patient was do ne on an emergent basis without prep as she was not able to tolerate due to her condition. Plan For Anesthesia: Monitored anesthesia care. Complexity: High risk. Technique: After obtaining informed consent from the patient explaining risks and complications, whi ch include, but are not limited to bleeding, infection, perforation, and anesthesia complication, the patient was placed in the left lateral position and sedation was given. Digital rectal exam was per formed. Then, the scope was inserted into the rectum. I was able to guide the scope to the cecum. The prep was very poor, but there was no solid stool; however, there was quite a lot of altered blood and blood products including clots. Few diverticula seen on the right side. When I did reach the c ecum, a large clot seen. This was first suctioned and removed. Below the clot, appeared to be a lar ge vessel near the appendix with an ulceration. Then, I injected epinephrine 3 mL around the lesion and then proceeded to place 3 clips successfully, which I believe would decrease significant degree t he chance of rebleeding. In regard to the rest of the colon, it is difficult to say as there was fredrick te a lot of blood, but I would believe the cecal vessel was likely source of bleeding. Impression: Colonic ulcer with visible vessel, likely source of bleeding, limited prep, would limit of poor evaluation of other possible sources. Plan: Continue current management. Monitor H and H, transfuse as needed. Can start liquid diet fro m GI point of view. If there is no further significant episode of bleeding and H and H remain stable, she probably can be discharged wit [facility] the next 24 hours. US/MODL Voice ID: [id number] Report ID: [id number]
[2021-01-02] MEDS: D5 0.45 NS 1,000 ML IV SCH ×2 (17:34→22:12)
[2021-01-03] MEDS: METRONIDAZOLE 500mg IVPB 500 MG/100 ML BAG IV SCH (00:26)
[2021-01-03 07:26] VITALS: TEMP 98.4
[2021-01-03 07:30] LABS: Basophils % 0.7 % (0-1.3); Hematocrit 32.9 % (36.0-45.0); Lymphocytes % 39.2 % (15.3-44.8); MPV 7.8 fL (7.6-11.3)
[2021-01-03 07:36] VITALS: O2SAT 95
[2021-01-03 07:44] LABS: Potassium 3.9 mmol/L (3.5-5.1)
[2021-01-03 09:12] VITALS: BP 136/80
== END 2021-01-03 09:40 | disposition home or self-care (01) | DRG 920 ==
LOC: ER 14:13 → OBSVTOIN 17:22 → ERHOLD 17:22 → 2ND 19:22 → ERHOLD 23:10
PROVIDERS: ADMIT Internal Medicine; ATTEND Internal Medicine
PROC: 0W3P8ZZ Control Bleeding in Gastrointestinal Tract, Via Natural or Artificial Opening Endoscopic (ICD-10-PCS; principal; 2021-01-02 01:00)
DX: K91.840 Postprocedural hemorrhage of a digestive system organ or structure following a digestive system procedure (principal); K63.3 Ulcer of intestine; D62 Acute posthemorrhagic anemia; K21.9 Gastro-esophageal reflux disease without esophagitis; E78.5 Hyperlipidemia, unspecified; Z90.710 Acquired absence of both cervix and uterus; Z88.1 Allergy status to other antibiotic agents; Z88.5 Allergy status to narcotic agent; Z88.8 Allergy status to other drugs, medicaments and biological substances; Z79.82 Long term (current) use of aspirin; Z79.899 Other long term (current) drug therapy; Z20.822 Contact with and (suspected) exposure to COVID-19
CPT/HCPCS: 36415; 74177; 80048; 80076; 83690; 85014; 85018; 85025; 86850; 86900; 86901; 86927; 96365; 96366; 96368; 96375; 99285; J0171; J0330; J0692; J2370; J2405; J2550; J2704; J7030; J7050; J7120; J7799; P9016; P9017; P9059; U0003

== ENCOUNTER 2022-07-08 19:53 | Emergency (ER) | payer OTHER ==
--- OUTSIDE RECORDS SUMMARY | 2022-07-08 19:57 | XMS REPORT | Continuity of Care Document ---
:1970 Author Organization [facility] t Address [address] [place] [address] Care Team Providers Name Role Phone Moe Saxena Primary Care Physician Cecilia Blanc MD Attending Clinician Amalia Attending Clinician Unavailable Doctor Unassigned, [place] Attending Clinician Unavailable Only, Adc Test Attending Clinician Unavailable Tavares Jhaveri MD Attending Clinician Amalia Admitting Clinician Unavailable Payers Payer Name Policy Type Policy Number Effective Date Expiration Date Jennifer rosas [employer]ET[employer] [id number] 2002 00:00:00 Problems Condition Condition Condition Status Onset Resolution Last Treating Co mments Source Name Details Category Date Date Treatment Clinician Date No known No known Disease Metho di active active st problems problems Hospit a l Allergies, Adverse Reactions, Alerts Allergy Allergy Status Severity Reaction(s) Onset Inactive Treating Comm ents Source Name Type Date Date Clinician Meperidi Propensi Active GI 2020-07 Method i ne ty to Intolerance 0-05 st adverse 00:00: Hospita reaction 00 l s to drug Ondanset Propensi Active GI 2020-07 Method i tarun Hcl ty to Intolerance 0-05 st adverse 00:00: Hospita reaction 00 l s to drug Codeine Propensi Active 2016-07 Methodi ty to 0-18 st adverse 00:00: Hospita reaction 00 l s to drug Propoxyp Propensi Active 2016-07 Method i hene ty to 0-18 st N-Acetam adverse 00:00: Hospita inophen reaction 00 l s to drug Levoflox Propensi Active 2016-07 Method i acin ty to 0-18 st adverse 00:00: Hospita reaction 00 l s to drug Pregabal Propensi Active 2016-07 Method i in ty to 0-18 st adverse 00:00: Hospita reaction 00 l s to drug Morphine Propensi Active 2016-07 Method i (Pf) ty to 0-18 st adverse 00:00: Hospita reaction 00 l s to drug Penicill Propensi Active 2016-07 Method i ins ty to 0-18 st adverse 00:00: Hospita reaction 00 l s to drug Zofran Allergy Active Severe Nausea Mona to 8-11 Orthope substanc 00:00: dic e 00 Sports Medicin e Levaquin Allergy Active Mona to 6-06 Orthope substanc 00:00: dic e 00 Sports Medicin e NO KNOWN Drug Active Univers ALLERGIE Class ity of [facility] Ampicill Allergy Active Mona in to Orthope substanc dic e Sports Medicin e Codeine Allergy Active Moderate Itching, Azal ea to to Nausea, Orthope substanc severe, Vomiting dic e Moderate Sports to Medicin severe, e Moderate to severe DARVOCET Allergy Active Severe Irregular Azal ea -N to heart rate Orthop e substanc dic e Sports Medicin e Demerol Allergy Active Severe, Itching, Azale a to Severe Vomiting Orthope substanc dic e Sports Medicin e Lactose Allergy Active Mona to Orthope substanc dic e Sports Medicin e Morphine Allergy Active Severe, Itching, Azal ea to Severe Vomiting Orthope substanc dic e Sports Medicin e Family History Family Member Diagnosis Comments Start Date Stop Date Source Natural father Diabetes [facility] Natural father Hypertension [facility] mother Diabetes [facility] Natural mother Heart disease [facility] Natural mother Hypertension [facility] Social History Social Habit Start Date Stop Date Quantity Comments Source Exposure to Not sure [facility] SARS-CoV-2 [facility] Alcohol intake 2022-06-26 2022-06-26 Ex-drinker [facility] 00:00:00 00:00:00 (finding) Tobacco use and 2022-06-10 2022-06-10 Smokeless tobacco [facility] exposure 00:00:00 00:00:00 non-user Sex Ass[birth year] [facility] 00:00:00 00:00:00 Smoking Status Start Date Stop Date Source Former Smoker Mona [facility] Unknown if ever smoked [facility] Never smoked tobacco [facility] Medications Ordered Filled Start Stop Current Ordering Indication Dosage Frequency Signature Comments Components Source Medication Medication Date Date Medication? Clinician (SIG) Name Name diazePAM 2021-07 Yes Take 1 [facility] (Valium) 5 2-05 tablet (5 st MG tablet 00:00: mg total) Hos keron 00 by mouth l once for 1 dose. Take one tablet 30 to 60 minutes prior to imaging; if needed due to incomplete response, may repeat the dose after 30 to [address] clobetasoL 2021-07 Yes 1{appli Q.5D Apply 1 M ethodi (TEMOVATE) 1-28 cation} applicatio st 0.05 % 00:00: n Hospita cream 00 topically l 2 (two) times a day. meloxicam 2021-07 15mg QD Take 15 mg M ethodi (MOBIC) 15 -16 11-[address] mg tablet 16:15: 00:00 daily. Hospi ta 20 :00 l traMADoL 2021-07 Yes [id number] 30mg Q6H Take 30 mg Me thodi (ULTRAM) 50 1-[address] mg tablet 15:55: every 6 Hospi ta 42 (six) l hours as needed for moderate pain .acute pain. atorvastati 2021-07 Yes 10mg QD Take 10 mg Methodi n (LIPITOR) 1-[address] 10 mg 15:55: daily. Hospita tablet 23 l pantoprazol 2021-07 Yes 40mg QD Take 40 mg Method[facility] e 1-[address] (PROTONIX) 15:55: daily. Hospi ta 40 MG EC 23 l tablet amitriptyli 2021-07 Yes 25mg QD Take 25 mg Methodi ne (ELAVIL) -[address] 25 MG 15:55: nightly. Hospita tablet 23 l aspirin 2021-07 Yes 81mg QD Take 81 mg Meth raghu (ECOTRIN) 1-[address] 81 MG 15:55: daily. Hospita enteric 23 l coated tablet baclofen 2021-07 Yes 20mg [id number] Take 20 mg [facility] (LIORESAL) -16 [id number] mouth [address] 20 MG 15:55: 3D (three) Hospita tablet 23 times a l day. melatonin 3 2021-07 Yes QD Take by Met hodi mg tablet -[address] 15:55: nightly. Hospita 23 l tiZANidine 2021-07 Yes 4mg QD Take 1 Metho di (ZANAFLEX) -16 tablet (4 st 4 MG tablet 15:55: mg total) H ospita 23 by mouth l nightly. meloxicam 2021-07 15mg QD Take 1 Metho di (MOBIC) 15 -16 12-17 tablet (15 st mg tablet 00:00: 05:59 mg total) Ho spita 00 :00 by mouth l daily for 30 days. Dulcolax Dulcolax No Dulcolax A zalea Stool Stool 8-14 Stool Orthope Softener Softener 00:00: Softener d ic (dss) (dss) 00 (dss) Sports Medicin e Dulcolax Dulcolax No Dulcolax A zalea Stool Stool 8-14 Stool Orthope Softener Softener 00:00: Softener d ic (dss) (dss) 00 (dss) Sports Medicin e ibuprofen ibuprofen No ibuprofen Mona 800 mg 800 mg 800 mg Orthope tablet TAKE tablet TAKE tablet dic 1 TABLET BY 1 TABLET BY TAKE 1 Sports MOUTH THREE MOUTH THREE TABLET BY Medicin TIMES A DAY TIMES A DAY MOUTH e THREE TIMES A DAY magnesium magnesium No 1 Q1D magnesium Mona 500 mg 500 mg 500 mg Orthope tablet 1 tablet 1 tablet 1 dic tablet tablet tablet Sports every day every day every day Medicin by oral by oral by oral e route. route. route. meloxicam meloxicam No meloxicam Mona 15 mg 15 mg 15 mg [facility] tablet TAKE tablet TAKE tablet dic 1 TABLET BY 1 TABLET BY TAKE 1 Sports MOUTH EVERY MOUTH EVERY TABLET BY Medicin DAY DAY MOUTH e EVERY DAY nitrofurant nitrofurant No nitrofuran Mona oin oin toin Orthope macrocrysta macrocrysta macrocryst dic l 100 mg l 100 mg al 100 mg Sp orts capsule capsule capsule Medici n e pantoprazol pantoprazol No 1 Q1D pantoprazo Mona e 40 mg e 40 mg le 40 mg Ortho pe tablet,anthony tablet,anthony tablet,del dic yed release yed release ayed S ports 1 tablet 1 tablet release 1 Me dicin every day every day tablet e by oral by oral every day route. route. by oral route. prednisone prednisone No prednisone Mona 10 mg 10 mg 10 mg Orthope tablet tablet tablet dic Sports Medicin e Probiotic Probiotic No Probiotic Mona [facility] dic Sports Medicin e promethazin promethazin No promethazi Mona e 25 mg e 25 mg ne 25 mg Ortho pe tablet TAKE tablet TAKE tablet dic 1 TABLET BY 1 TABLET BY TAKE 1 Sports MOUTH EVERY MOUTH EVERY TABLET BY Medicin 6 HOURS 6 HOURS MOUTH e NEEDED NEEDED EVERY 6 HOURS NEEDED promethazin promethazin No promethazi Mona e-DM 6.25 e-DM 6.25 ne-DM 6.25 Orthope mg-15 mg/5 mg-15 mg/5 mg-15 mg/5 dic mL oral mL oral mL oral Sports syrup TAKE syrup TAKE syrup TAKE Medicin 1 1 1 e TEASPOONFUL TEASPOONFUL TEASPOONFU (5ML) BY (5ML) BY L (5ML) BY MOUTH FOUR MOUTH FOUR MOUTH FOUR TIMES A DAY TIMES A DAY TIMES A NEEDED NEEDED DAY FOR COUGH FOR COUGH NEEDED FOR COUGH sulfamethox sulfamethox No sulfametho Mona azole 800 azole 800 xazole 800 Orthope mg-trimetho mg-trimetho mg-trimeth dic prim 160 mg prim 160 mg oprim 160 Sports tablet TAKE tablet TAKE mg tablet Medicin 1 TABLET BY 1 TABLET BY TAKE 1 e MOUTH TWICE MOUTH TWICE TABLET BY A DAY FOR A DAY FOR MOUTH 10 DAYS 10 DAYS TWICE A DAY FOR 10 DAYS Super B Super B No 1capsul Q1D Super B Aza nigel Complex Complex e(s) Complex Orthop e capsule 1 capsule 1 capsule 1 dic capsule capsule capsule Sports every day every day every day Medicin by oral by oral by oral e route. route. route. tizanidine tizanidine No 1 tizanidine Mona 4 mg tablet 4 mg tablet 4 mg O rthope 1 tablet as 1 tablet as tablet 1 dic needed by needed by tablet as Sports oral route. oral route. needed by Medicin oral e route. tramadol 50 tramadol 50 No tramadol Mona mg tablet mg tablet 50 mg Orth ope TAKE 1 TAKE 1 tablet dic TABLET BY TABLET BY TAKE 1 Spo rts MOUTH EVERY MOUTH EVERY TABLET BY Medicin 4 HOURS 4 HOURS MOUTH e NEEDED NEEDED EVERY 4 HOURS NEEDED triamcinolo triamcinolo No triamcinol Mona ne ne one Orthope acetonide acetonide acetonide dic 0.1 % 0.1 % 0.1 % Sports topical topical topical Medici n cream APPLY cream APPLY cream e TWICE A DAY TWICE A DAY APPLY FOR 1 WEEK FOR 1 WEEK TWICE A TO TO DAY FOR 1 NEEDED FPR NEEDED FPR WEEK TO RASH. AVOID RASH. AVOID NEEDED FPR FACE, FACE, RASH. UNDERARMS, UNDERARMS, AVOID GROIN GROIN FACE, UNDERARMS, GROIN amitriptyli amitriptyli No amitriptyl Mona ne 25 mg ne 25 mg ine 25 mg Or thope tablet 1 tablet 1 tablet 1 dic tablet tablet tablet Sports every day every day every day Medicin by oral by oral by oral e route. route. route. Asprin Ec Asprin Ec No 1 Q1D Asprin Ec Mona Low Dose 81 Low Dose 81 Low Dose Orthope mg mg 81 mg dic tablet,anthony tablet,anthony tablet,del Sports yed release yed release ayed M edicin 1 tablet 1 tablet release 1 e every day every day tablet by oral by oral every day route. route. by oral route. atorvastati atorvastati No 1 Q1D atorvastat Mona n 10 mg n 10 mg in 10 mg Ortho pe tablet 1 tablet 1 tablet 1 dic tablet tablet tablet Sports every day every day every day Medicin by oral by oral by oral e route. route. route. azithromyci azithromyci No azithromyc Mona n 250 mg n 250 mg in 250 mg Or thope tablet tablet tablet dic Sports Medicin e baclofen 20 baclofen 20 No baclofen Mona mg tablet 1 mg tablet 1 20 mg Orthope tablet tablet tablet 1 dic every day every day tablet Spo rts by oral by oral every day Medi jina route. route. by oral e route. bromphenira bromphenira No bromphenir Mona mine-pseudo mine-pseudo amine-pseu Orthope ephedrine-D ephedrine-D doephedrin dic M 2 mg-30 M 2 mg-30 e-DM 2 Spo rts mg-10 mg/5 mg-10 mg/5 mg-30 Me dicin mL oral mL oral mg-10 mg/5 e syrup syrup mL oral syrup dexamethaso dexamethaso No dexamethas Mona ne 6 mg ne 6 mg one 6 mg Ortho pe tablet tablet tablet dic Sports Medicin e diazepam 10 diazepam 10 No diazepam Mona mg tablet mg tablet 10 mg Orth ope Take 1 Take 1 tablet dic tablet 15 tablet 15 Take 1 Spo rts minutues minutues tablet 15 Me dicin prior to prior to minutues e MRI by oral MRI by oral prior to route. route. MRI by oral route. Diurex Diurex No Diurex Mona [facility] dic Sports Medicin e ibuprofen ibuprofen No ibuprofen Mona 800 mg 800 mg 800 mg Orthope tablet TAKE tablet TAKE tablet dic 1 TABLET BY 1 TABLET BY TAKE 1 Sports MOUTH THREE MOUTH THREE TABLET BY Medicin TIMES A DAY TIMES A DAY MOUTH e THREE TIMES A DAY magnesium magnesium No 1 Q1D magnesium Mona 500 mg 500 mg 500 mg Orthope tablet 1 tablet 1 tablet 1 dic tablet tablet tablet Sports every day every day every day Medicin by oral by oral by oral e route. route. route. meloxicam meloxicam No meloxicam Mona 15 mg 15 mg 15 mg Orth[facility] tablet TAKE tablet TAKE tablet dic 1 TABLET BY 1 TABLET BY TAKE 1 Sports MOUTH EVERY MOUTH EVERY TABLET BY Medicin DAY DAY MOUTH e EVERY DAY nitrofurant nitrofurant No nitrofuran Mona oin oin toin Orthope macrocrysta macrocrysta macrocryst dic l 100 mg l 100 mg al 100 mg Sp orts capsule capsule capsule Medici n e pantoprazol pantoprazol No 1 Q1D pantoprazo Mona e 40 mg e 40 mg le 40 mg Ortho pe tablet,anthony tablet,anthony tablet,del dic yed release yed release ayed S ports 1 tablet 1 tablet release 1 Me dicin every day every day tablet e by oral by oral every day route. route. by oral route. prednisone prednisone No prednisone Mona 10 mg 10 mg 10 mg Orthope tablet tablet tablet dic Sports Medicin e Probiotic Probiotic No Probiotic Mona [facility] dic Sports Medicin e promethazin promethazin No promethazi Mona e 25 mg e 25 mg ne 25 mg Ortho pe tablet TAKE tablet TAKE tablet dic 1 TABLET BY 1 TABLET BY TAKE 1 Sports MOUTH EVERY MOUTH EVERY TABLET BY Medicin 6 HOURS 6 HOURS MOUTH e NEEDED NEEDED EVERY 6 HOURS NEEDED promethazin promethazin No promethazi Mona e-DM 6.25 e-DM 6.25 ne-DM 6.25 Orthope mg-15 mg/5 mg-15 mg/5 mg-15 mg/5 dic mL oral mL oral mL oral Sports syrup TAKE syrup TAKE syrup TAKE Medicin 1 1 1 e TEASPOONFUL TEASPOONFUL TEASPOONFU (5ML) BY (5ML) BY L (5ML) BY MOUTH FOUR MOUTH FOUR MOUTH FOUR TIMES A DAY TIMES A DAY TIMES A NEEDED NEEDED DAY FOR COUGH FOR COUGH NEEDED FOR COUGH sulfamethox sulfamethox No sulfametho Mona azole 800 azole 800 xazole 800 Orthope mg-trimetho mg-trimetho mg-trimeth dic prim 160 mg prim 160 mg oprim 160 Sports tablet TAKE tablet TAKE mg tablet Medicin 1 TABLET BY 1 TABLET BY TAKE 1 e MOUTH TWICE MOUTH TWICE TABLET BY A DAY FOR A DAY FOR MOUTH 10 DAYS 10 DAYS TWICE A DAY FOR 10 DAYS Super B Super B No 1capsul Q1D Super B Aza nigel Complex Complex e(s) Complex Orthop e capsule 1 capsule 1 capsule 1 dic capsule capsule capsule Sports every day every day every day Medicin by oral by oral by oral e route. route. route. tizanidine tizanidine No 1 tizanidine Mona 4 mg tablet 4 mg tablet 4 mg O rthope 1 tablet as 1 tablet as tablet 1 dic needed by needed by tablet as Sports oral route. oral route. needed by Medicin oral e route. tramadol 50 tramadol 50 No tramadol Mona mg tablet mg tablet 50 mg Orth ope TAKE 1 TAKE 1 tablet dic TABLET BY TABLET BY TAKE 1 Spo rts MOUTH EVERY MOUTH EVERY TABLET BY Medicin 4 HOURS 4 HOURS MOUTH e NEEDED NEEDED EVERY 4 HOURS NEEDED triamcinolo triamcinolo No triamcinol Mona ne ne one Orthope acetonide acetonide acetonide dic 0.1 % 0.1 % 0.1 % Sports topical topical topical Medici n cream APPLY cream APPLY cream e TWICE A DAY TWICE A DAY APPLY FOR 1 WEEK FOR 1 WEEK TWICE A TO TO DAY FOR 1 NEEDED FPR NEEDED FPR WEEK TO RASH. AVOID RASH. AVOID NEEDED FPR FACE, FACE, RASH. UNDERARMS, UNDERARMS, AVOID GROIN GROIN FACE, UNDERARMS, GROIN amitriptyli amitriptyli No 1 Q1D amitriptyl Mona ne 25 mg ne 25 mg ine 25 mg Or thope tablet 1 tablet 1 tablet 1 dic tablet tablet tablet Sports every day every day every day Medicin by oral by oral by oral e route. route. route. Asprin Ec Asprin Ec No 1 Q1D Asprin Ec Mona Low Dose 81 Low Dose 81 Low Dose Orthope mg mg 81 mg dic tablet,anthony tablet,anthony tablet,del Sports yed release yed release ayed M edicin 1 tablet 1 tablet release 1 e every day every day tablet by oral by oral every day route. route. by oral route. atorvastati atorvastati No 1 Q1D atorvastat Mona n 10 mg n 10 mg in 10 mg Ortho pe tablet 1 tablet 1 tablet 1 dic tablet tablet tablet Sports every day every day every day Medicin by oral by oral by oral e route. route. route. azithromyci azithromyci No azithromyc Mona n 250 mg n 250 mg in 250 mg Or thope tablet tablet tablet dic Sports Medicin e baclofen 20 baclofen 20 No 1 Q1D baclofen Mona mg tablet 1 mg tablet 1 20 mg Orthope tablet tablet tablet 1 dic every day every day tablet Spo rts by oral by oral every day Medi jina route. route. by oral e route. bromphenira bromphenira No bromphenir Mona mine-pseudo mine-pseudo amine-pseu Orthope ephedrine-D ephedrine-D doephedrin dic M 2 mg-30 M 2 mg-30 e-DM 2 Spo rts mg-10 mg/5 mg-10 mg/5 mg-30 Me dicin mL oral mL oral mg-10 mg/5 e syrup syrup mL oral syrup dexamethaso dexamethaso No dexamethas Mona ne 6 mg ne 6 mg one 6 mg Ortho pe tablet tablet tablet dic Sports Medicin e diazepam 10 diazepam 10 No diazepam Mona mg tablet mg tablet 10 mg Orth ope Take 1 Take 1 tablet dic tablet 15 tablet 15 Take 1 Spo rts minutues minutues tablet 15 Me dicin prior to prior to minutues e MRI by oral MRI by oral prior to route. route. MRI by oral route. Diurex Diurex No Diurex [facility] dic Sports Medicin e Immunizations Ordered Filled Immunization Date Status Comments Sourc e Immunization Name Name influenza, influenza, 2022-05-01 Completed Mon[facility] dic seasonal, seasonal, 00:00:00 Sports Medicin e injectable injectable influenza, influenza, 2022-05-01 Completed [facility] dic seasonal, seasonal, 00:00:00 Sports Medicin e injectable injectable Vital Signs Vital Name Observation Time Observation Value Comments Source Height 2022-05-13 00:00:00 67 [in_i] [facility] BMI (Body Mass 2022-05-13 00:00:00 33.7 kg/m2 [facility] Index) Sports Medicine Body Weight 2022-05-13 00:00:00 215 [lb_av] [facility] Height 2022-05-06 00:00:00 67 [in_i] [facility] BMI (Body Mass 2022-05-06 00:00:00 33.7 kg/m2 [facility] Index) Sports Medicine Body Weight 2022-05-06 00:00:00 215 [lb_av] [facility] Systolic blood 2022-06-26 20:54:00 134 mm[Hg] [facility] pressure Diastolic blood 2022-06-26 20:54:00 88 mm[Hg] [facility] pressure Heart rate 2022-06-26 20:54:00 112 /min [facility] Body height 2022-06-26 20:54:00 170.2 cm [facility] Body weight 2022-06-26 20:54:00 96.979 [facility] BMI 2022-06-26 20:54:00 33.49 kg/m2 [facility] Procedures Procedure Date / Time Performing Clinician Source Performed COMPREHENSIVE METABOLIC 2022-07-08 16:26:00 [facility] PANEL ESTIMATED GFR 2022-07-08 16:26:00 Cecilia Blanc Ho [facility]ital XR HANDS 3 VW BILATERAL 2022-06-10 22:43:56 [facility] CBC WITH PLATELET AND 2022-06-10 22:43:00 [facility] DIFFERENTIAL COMPREHENSIVE METABOLIC 2022-06-10 22:43:00 [facility] PANEL SEDIMENTATION RATE 2022-06-10 22:43:00 [facility] C-REACTIVE PROTEIN 2022-06-10 22:43:00 [facility] RHEUMATOID FACTOR 2022-06-10 22:43:00 [facility] CYCLIC CITRULLINATED 2022-06-10 22:43:00 [facility] PEPTIDE AB, IGG HLA-B27 ANTIGEN 2022-06-10 22:43:00 Cecilia Blanc Ho spital ESTIMATED GFR 2022-06-10 22:43:00 Cecilia Blancist Ho spital XR, cervical spine, 2 or 3 2022-05-06 00:00:00 Nii reed [facility] view Sports Medicine MRI CERVICAL SPINE W/O 2022-05-06 00:00:00 Harvey chanel [facility] CONTRAST Sports Medicine REFERRAL- REQUEST/RESPONSE 2021-08-11 06:01:00 Doctor Unassigned , [facility] Shoulder Surgery 2021-05-15 00:00:00 [facility] Other 2020-07-10 00:00:00 [facility] ASSIGNMENT OF BENEFITS 2020-07-03 14:02:56 Doctor Unassigned, [facility] Foot Surgery 2018-12-01 00:00:00 [facility] Other 2016-05-04 00:00:00 [facility] Carpal Tunnel Surgery 2015-04-25 00:00:00 [facility] Gastrointestinal Surgery 2014-03-05 00:00:00 Mary manning [facility] Other 2014-03-05 00:00:00 [facility] Hand Surgery 2013-05-03 00:00:00 [facility] Other 2006-05-04 00:00:00 [facility] Carpal Tunnel Surgery 2004-12-29 00:00:00 [facility] Hysterectomy 2000-02-02 00:00:00 [facility] Other 1992-06-05 00:00:00 [facility] Plan of Care Planned Activity Planned Date Details Comments Source Future Scheduled 2022-07-08 HEPATITIS B VACCINES [facility] Test 10:26:13 (1 of 3 - 3-dose series) [code = HEPATITIS B VACCINES (1 of 3 - 3-dose series)] Future Scheduled 2022-07-08 Hepatitis C screening [facility] Test 10:26:13 (procedure) [code = [id number]] Future Scheduled 2022-07-08 BREAST CANCER [facility] Test 10:26:13 SCREENING [code = BREAST CANCER SCREENING] Future Scheduled 2022-07-08 COLONOSCOPY SCREENING [facility] Test 10:26:13 [code = COLONOSCOPY SCREENING] Future Scheduled 2022-07-08 SHINGLES VACCINES (1 [facility] Test 10:26:13 of 2) [code = SHINGLES VACCINES (1 of 2)] Future Scheduled 2022-07-08 COVID-19 VACCINE (3 - Me [facility] Test 10:26:13 Booster for Pfizer series) [code = COVID-19 VACCINE (3 - Booster for Pfizer series)] Encounters Start End Encounter Admission Attending Care Care Encounter Source Date/Time Date/Time Type Type Clinicians Facility Department ID 2022-07-08 2022-07-08 Lab Cecilia Blanc 1.2.840.1 [id number] [facility] 10:25:00 10:30:[address] 3.430.2.7 Hospit a .3.293095 l .8 2022-07-08 2022-07-08 Outpatient [facility] [id number] [place] 00:00:00 00:00:[address] 2022-07-07 2022-07-07 Refill Cecilia Blanc .2.840.1 [id number] [facility] 00:00:00 00:00:[address] 3.430.2.7 Hospit a .3.037082 l .8 2022-06-29 2022-06-29 Orders Frannie Blanca 1.2.840.1 [id number] [facility] 00:00:00 00:00:[address] 3.430.2.7 Hospit a .3.353713 l .8 2022-06-26 2022-06-26 Office Cecilia Blanc 1.2.840.1 [id number] [facility] 15:00:00 15:30:[address] 3.430.2.7 Hospit a .3.653276 l .8 2022-06-26 2022-06-26 Travel 1.2.840.1 1.2.935.611 [id number] [facility] 00:00:00 00:00:[address] 3.430.2.7 0.2.7.3.698 Ho spita .3.204215 084.8 l .8 2022-06-26 2022-06-26 Outpatient [facility] [id number] [place] 00:00:00 00:00:[address] 2022-06-10 2022-06-10 Lab Cecilia Blanc 1.2.840.1 [id number] [facility] 16:45:00 16:50:[address] 3.430.2.7 Hospit a .3.412771 l .8 2022-06-10 2022-06-10 Office Cecilia Blanc 1.2.840.1 [id number] [id number] [facility] 16:00:00 16:20:[address] 3.430.2.7 Hospit a .3.141745 l .8 2022-06-10 2022-06-10 Travel 1.2.840.1 [id number] [id number] [facility] 00:00:00 00:00:[address] 3.430.2.7 0.2.7.3.698 Ho spita .3.494748 084.8 l .8 2022-06-10 2022-06-10 Outpatient [facility] [id number] [place] 00:00:00 00:00:[address] 2022-06-10 2022-06-10 Outpatient [facility] [id number] [place] 00:00:00 00:00:[address] 2022-06-10 2022-06-10 Outpatient [facility] [id number] [place] 00:00:00 00:00:[address] 2022-06-05 2022-06-05 Travel 1.2.840.1 [id number] [id number] [facility] 00:00:00 00:00:[address] 3.430.2.7 0.2.7.3.698 Ho spita .3.561046 084.8 l .8 2022-05-23 2022-05-23 Outpatient FOG_Taba_Ho AOSM AOSM [id number] [facility] 00:00:00 00:00:00 Michelle [id number] Orthop e dic Sports Medicin e 2022-05-19 2022-05-19 Outpatient FOG_Taba_Ho AOSM AOSM [id number] [facility] 00:00:00 00:00:00 Michelle [id number] Orthop e dic Sports Medicin e 2022-05-13 2022-05-13 Outpatient FOG_Taba_Ho AOSM AOSM [id number] [facility] 00:00:00 00:00:00 Michelle [id number] Orthop e dic Sports Medicin e 2022-05-13 2022-05-13 [place] A AOS[facility] [place] - Ortho Mona 00:00:00 00:00:00 MD Christiano: [place] - Orthope [id number] FOG_Ofc dic [facility] [employer] [address], [place] [address] , Ph. [phone] 2022-05-12 2022-05-12 Outpatient FOG_Taba_Ho AOSM AOSM [id number] [facility] 00:00:00 00:00:00 Michelle [id number] Orthop e dic Sports Medicin e 2022-05-06 2022-05-06 Outpatient FOG_Taba_Ho AOSM AOSM [id number] [facility] 00:00:00 00:00:00 Michelle [id number] Orthop e dic [facility] 2022-05-06 2022-05-06 [place] A AOSM [place] - Ortho Mona 00:00:00 00:00:00 MD Christiano: Smitha Englee [address] [address] FOG_Ofc [facility] [place] [facility] [address], [place] [address] , Ph. [phone] 2022-05-05 2022-05-05 Outpatient FOG_Taba_Ho AOSM AOSM [id number] Mona 00:00:00 00:00:00 Michelle [id number] Orthop e dic [facility] 2022-05-03 2022-05-03 Outpatient FOG_Taba_Ho AOSM AOSM [id number] Mona 00:00:00 00:00:00 Michelle [id number] Orthop e dic [facility] 2022-04-16 2022-04-16 Outpatient FOG_Taba_Ho AOSM AOSM [id number] Mona 00:00:00 00:00:00 Michelle [id number] Orthop e dic [facility] 2021-08-11 2021-08-11 Orders Doctor ARIAS [id number] Univers 00:00:00 00:00:00 Only Unassigned, MARIO [id number] [facility] [id number] Sebastien as [id number] [place] [id number] [address] 2021-05-20 2021-05-20 Outpatient [facility] [id number] [place] 00:00:00 00:00:00 173 Method i 2021-05-05 2021-05-05 Out[facility] ALI, [facility] [address] [place] 00:00:00 00:00:00 794 Method i 2021-04-29 2021-04-29 Outpatient ALI, [facility] [id number] [place] 00:00:00 00:00:00 814 Method i 2021-04-29 2021-04-29 Outpatient ALI, [facility] 47 [place] 00:00:00 00:00:00 907 Method i 2020-07-03 2020-07-03 Laboratory Only, [facility] Test [facility] 1.2.840. [id number] [facility] 08:03:29 08:18:29 Only Jayashlie Tavares Harvey [id number] ity [facility] [id number] [facility] [id number] [facility] [address] [place] 2020-07-03 2020-07-03 Laboratory Only, [facility] [id number] 08:03:29 08:18:29 Only Test Wes [id number] [place] [id number] [place] [id number] [facility] 2020-07-03 2020-07-03 [place] [id number] [facility] 08:00:00 08:00:00 ity of [facility] 2020-07-03 2020-07-03 Orders Doctor HUGO 1.2.840.114 [id number] [facility] 00:00:00 00:00:00 Only Unassigned, MARIO [id number] [facility] [id number] [place] [id number] [facility] [address] 2020-07-03 2020-07-03 Orders Doctor ARIAS 1.2.840.114 [id number] 00:00:00 00:00:00 Only Unassigned, MARIO [id number] [facility] [id number] Results Test Description Test Time Test Comments Results Result Comments Source HLA-B27 antigen 2022-06-12 01:22:00 Test Item Value Reference Range Interpretation Comme nts HLA B27 (test code = 63303-8) NEGATIVE NEGATIVE RAC (test code = RAC) Performing Organization Information: Site ID: [facility] Address: [address] [place] [id number] Director: Dr. Porfirio Nuñez [facility]
[2022-07-08 20:54] LABS: Absolute Lymphocytes (CBC) 3.8 K/uL (0.7-4.9); Lymphocytes % 44.6 % (15.3-44.8); MCV 92.5 fL (80-100); MPV 6.9 fL (7.6-11.3); RBC Red Blood Cell Count 4.66 M/uL (3.86-4.86)
[2022-07-08 21:04] LABS: Albumin 3.9 g/dL (3.4-5.0); Bilirubin Total 0.3 mg/dL (0.2-1.0); Potassium 3.8 mmol/L (3.5-5.1); Protein, Total 7.4 g/dL (6.4-8.2)
[2022-07-08 22:06] LABS: SARS-CoV-2 Antigen Rapid Res Negative (Negative)
--- NOTE | 2022-07-08 22:18 | ER ---
Nurse's Notes [facility] Name: Fanta Mcfarlane Age: 52 yrs Sex: Female : 1970 Arrival Date: 07/08/2022 Time: 19:57 Bed 5 Private MD: Diagnosis: Rectal bleeding status post hemorrhoidal banding Presentation: 07/08 20:08 Chief complaint: Patient states: i had a banding today and now i was eating dinner and jh5 I thought i was farting and i was just pouring out blood; did my banding today. Coronavirus screen: Vaccine status: Patient reports receiving the 2nd dose of the covid vaccine. Client denies travel out of the [place] in the last 14 days. Ebola Screen: Patient negative for fever greater than or equal to 101.5 degrees Fahrenheit, and additional compatible Ebola Virus Disease symptoms Patient denies exposure to infectious person. Patient denies travel to an Ebola-affected area in the 21 days before illness onset. Initial Sepsis Screen: Does the patient meet any 2 criteria? No. Patient's initial sepsis screen is negative. Does the patient have a suspected source of infection? No. Patient's initial sepsis screen is negative. Risk Assessment: Do you want to hurt yourself or someone else? Patient reports no desire to harm self or others. 20:08 Method Of Arrival: Ambulatory [facility] 20:08 Acuity: MANSI 3 5 23:28 Onset of symptoms was July 08, 2022 at 18:00. Triage Assessment: 20:12 General: Appears uncomfortable, well groomed, well developed, Behavior is calm, 5 cooperative, appropriate for age. Pain: Denies pain. 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 - Social history:: Smoking status: Patient denies any tobacco usage or history of. Screenin:36 [facility] ED Fall Risk Assessment (Adult) History of falling in the last 3 months, kl including since admission No falls in past 3 months (0 pts) Confusion or Disorientation No (0 pts) Intoxicated or Sedated No (0 pts) Impaired Gait No (0 pts) Mobility Assist Device Used No (0 pt) Altered Elimination No (0 pt) Score/Fall Risk Level 0 - 2 = Low Risk Oriented to surroundings, Maintained a safe environment, Educated pt \\T\\ family on fall prevention, incl call for assistance when getting out of bed, Assessed \\T\\ reinforced patient's understanding of fall precautions, Hourly rounding (assess needs \\T\\ fall precautionary measures) done. 23:28 Nutritional screening: No deficits noted. Tuberculosis screening: No symptoms or risk kl factors identified. 23:28 Abuse screen: Denies threats or abuse. kl Assessment: 20:18 General: Appears comfortable, Behavior is calm, cooperative. Pain:. ha1 20:19 Neuro: Level of Consciousness is awake, alert, obeys commands, Oriented to person, ha1 place, time, situation. Cardiovascular: Capillary refill < 3 seconds Patient's skin is warm and dry. Respiratory: Airway is patent Trachea midline Respiratory effort is even, unlabored, Respiratory pattern is regular, symmetrical. GI: Abdomen is non-distended, obese, Bowel sounds present X 4 quads. Reports bleeding from a hemorrhoids. 21:42 Reassessment: Patient and/or family updated on plan of care and expected duration. Pain kl level reassessed. Patient is alert, oriented x 3, equal unlabored respirations, skin warm/dry/pink. updated o POC pt to be transferred . Vital Signs: 20:08 BP 157 / 97; Pulse 112; Resp 16; Temp 98.6; Pulse Ox 100% ; Weight 96.16 kg; Height 5 jh5 ft. 7 in. (170.18 cm); Pain 0/10; 20:49 BP 146 / 94; Pulse 88; Resp 16; Pulse Ox 99% on R/A; kl 21:42 BP 138 / 98; Pulse Ox 96% on R/A; kl 22:24 BP 140 / 85; Pulse Ox 95% ; kl 23:26 BP 138 / 80; Pulse 72; Resp 18; Pulse Ox 99% on R/A; kl 20:08 Body Mass Index 33.20 (96.16 kg, 170.18 cm) [facility] ED Course: 19:57 Patient arrived in ED. jj6 20:03 Jared Estrada MD is Attending Physician. kdr 20:12 Triage completed. [facility] 20:12 Arm band placed on right wrist. 5 20:25 Inserted saline lock: 20 gauge in right forearm, using aseptic technique. Blood kl collected. 21:30 Initiated transfer to [facility], spoke with Radha Castaneda. wm 21:58 SARS-COV-2 Antigen Rapid Sent. ha1 22:11 Pt accepted for transfer by Dr. Lin Taylor. wm 23:28 No provider procedures requiring assistance completed. Patient transferred, IV remains kl in place. 23:29 Patient has correct armband on for positive identification. kl Administered Medications: No medications were administered Medication: 20:49 VIS not applicable for this client. kl Outcome: 22:17 ER care complete, transfer ordered by . kdr 23:27 Transferred by ground EMS to [facility]. kl 23:27 Condition: stable 23:27 Discharge instructions given to patient, family, Instructed on the need for transfer, Demonstrated understanding of instructions. 23:40 Patient left the ED. kl Signatures: Maylin Singh RN RN Jared Estrada MD MD [facility] Kelly Luna Silvia Schneider [facility] Miracle Gamble, RN RN [facility] Irasema Hernández, RN RN 1 Corrections: (The following items were deleted from the chart) 20:20 20:18 General: Appears comfortable, Behavior is calm, cooperative, ha1 ha1 21:57 20:19 GI: Abdomen is non-distended, obese, Bowel sounds present X 4 quads. ha1 ha1
--- NOTE | 2022-07-08 22:18 | EDPHYS ---
Physician Documentation [facility] Name: Fanta Mcfarlane Age: 52 yrs Sex: Female : 1970 Arrival Date: 07/08/2022 Time: 19:57 Bed 5 Private MD: ED Physician Jared Estrada HPI: 07/08 22:18 This 52 yrs old Female presents to ER via Ambulatory with complaints of Hemorrhoids, kdr Rectal Bleeding. 22:18 The patient presents to the emergency department with bleeding from the rectum/anus, kdr that is moderate. Onset: The symptoms/episode began/occurred suddenly, just prior to arrival. Context: the patient is post surgical, Hemorrhoidal banding x2, on July 08, 2022. Modifying factors: The symptoms are alleviated by nothing, The symptoms are aggravated by bowel movement. Associate signs and symptoms: The patient has no apparent associated signs or symptoms. Patient has similar episode in December 2020 when she had a polypectomy and according to patient required multiple transfusions. In review of her records, it was noted that when she presented that day in , her initial hemoglobin was 13.3 and subsequently dropped to 10.0 while in the emergency department. Patient states that she had multiple blood transfusions at that time. She was also seen at that time by Dr. Menendez who scoped her. The patient has been recently seen by a physician: Dr. Dr. Buckner Patient was seen earlier today by Dr. Spencer. I did reach him and speak with him about the patient's presentation, exam findings and need for GI consult. He felt that he did not have the resources to properly evaluate and manage the patient here this evening and asked me to transfer the patient. I informed the patient of the findings and the discussions with Dr. Spencer.. 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 - Social history:: Smoking status: Patient denies any tobacco usage or history of. ROS: 22:21 Constitutional: Negative for fever, chills, and weight loss, Eyes: Negative for injury, kdr pain, redness, and discharge, ENT: Negative for injury, pain, and discharge, Neck: Negative for injury, pain, and swelling, Cardiovascular: Negative for chest pain, palpitations, and edema, Respiratory: Negative for shortness of breath, cough, wheezing, and pleuritic chest pain, Back: Negative for injury and pain, : Negative for injury, bleeding, discharge, and swelling, MS/Extremity: Negative for injury and deformity, Skin: Negative for injury, rash, and discoloration, Neuro: Negative for headache, weakness, numbness, tingling, and seizure activity. Psych: Negative for depression, anxiety, suicide ideation, homicidal ideation, and hallucinations, Allergy/Immunology: Negative for hives, rash, and allergies, Endocrine: Negative for neck swelling, polydipsia, polyuria, polyphagia, and marked weight changes, Hematologic/Lymphatic: Negative for swollen nodes, abnormal bleeding, and unusual bruising. Exam: 07/09 00:45 Constitutional: This is a well developed, well nourished patient who is awake, alert, kdr and in no acute distress. Head/Face: Normocephalic, atraumatic. Eyes: Pupils equal round and reactive to light, extra-ocular motions intact. Lids and lashes normal. Conjunctiva and sclera are non-icteric and not injected. Cornea within normal limits. Periorbital areas with no swelling, redness, or edema. Neck: Trachea midline, no thyromegaly or masses palpated, and no cervical lymphadenopathy. Supple, full range of motion without nuchal rigidity, or vertebral point tenderness. No Meningismus. Chest/axilla: Normal chest wall appearance and motion. Nontender with no deformity. No lesions are appreciated. Cardiovascular: Regular rate and rhythm with a normal S1 and S2. No gallops, murmurs, or rubs. Normal PMI, no JVD. No pulse deficits. Respiratory: Lungs have equal breath sounds bilaterally, clear to auscultation and percussion. No rales, rhonchi or wheezes noted. No increased work of breathing, no retractions or nasal flaring. Back: No spinal tenderness. No costovertebral tenderness. Full range of motion. Skin: Warm, dry with normal turgor. Normal color with no rashes, no lesions, and no evidence of cellulitis. MS/ Extremity: Pulses equal, no cyanosis. Neurovascular intact. Full, normal range of motion. Neuro: Awake and alert, GCS 15, oriented to person, place, time, and situation. Cranial nerves II-XII grossly intact. Motor strength 5/5 in all extremities. Sensory grossly intact. Cerebellar exam normal. Normal gait. Psych: Awake, alert, with orientation to person, place and time. Behavior, mood, and affect are within normal limits. ECG was reviewed by the Attending Physician. 00:47 Abdomen/GI: Inspection: obese Bowel sounds: active, Palpation: soft, nontender, Rectal kdr exam: rectal tone Given the recent procedure, the rectal exam was deferred. There were no obvious tissue extrusions or other irritations noted. I was not able to express any blood from the rectum. Patient did not have any undue pain but only mild pressure from the exam.. Vital Signs: 07/08 20:08 BP 157 / 97; Pulse 112; Resp 16; Temp 98.6; Pulse Ox 100% ; Weight 96.16 kg; Height 5 jh5 ft. 7 in. (170.18 cm); Pain 0/10; 20:49 BP 146 / 94; Pulse 88; Resp 16; Pulse Ox 99% on R/A; kl 21:42 BP 138 / 98; Pulse Ox 96% on R/A; kl 22:24 BP 140 / 85; Pulse Ox 95% ; kl 23:26 BP 138 / 80; Pulse 72; Resp 18; Pulse Ox 99% on R/A; kl 20:08 Body Mass Index 33.20 (96.16 kg, 170.18 cm) [facility] MDM: 22:17 Patient medically screened. kdr 07/09 00:46 Data reviewed: vital signs, nurses notes, lab test result(s), radiologic studies. kdr Counseling: I had a detailed discussion with the patient and/or guardian regarding: the historical points, exam findings, and any diagnostic results supporting the discharge/admit diagnosis, lab results, the need to transfer to another facility. 00:47 ED course: I was able to contact Dr. Buckner with regard to his patient. He felt that the kdr some bleeding was normal but that if the bleeding was more than that, he did not have the resources here to evaluate or manage the patient appropriately. He asked me to transfer the patient. I reviewed old records and that indicated that subsequent to a polypectomy previously, the patient had significant bleeding requiring resulting in the transfusion of 4 units of packed cells and Dr. Menendez was called to intervene and manage the patient in the OR. Since local GI was not available and given the patient's history of significant bleeding (hemoglobin dropped from 13.3-10.0) and the lack of availability of GI for possible intervention, decision was made to transfer the patient as soon as possible as opposed to wait for any potential deterioration. ED course: Patient was transferred to [facility] in stable condition. 07/08 20:16 Order name: CBC with Diff; Complete Time: 21:34 kdr 07/08 20:16 Order name: CMP; Complete Time: 21:34 kdr 07/08 20:16 Order name: Lipase; Complete Time: 21:34 kdr 07/08 20:16 Order name: Type And Screen kdr 07/08 21:27 Order name: SARS-COV-2 Antigen Rapid; Complete Time: 22:08 07/08 22:09 Order name: PT-INR kdr 07/08 20:16 Order name: IV Saline Lock kdr 07/08 20:16 Order name: Labs collected and sent [facility] 07/08 20:18 Order name: Orthostatics kdr EC:45 Rate is 112 beats/min. Rhythm is regular, Sinus tachycardia with No ectopy. QRS [place] is kdr Normal. IN interval is normal. Clinical impression: Sinus tachycardia. Administered Medications: No medications were administered Disposition Summary: 07/08/22 22:17 Transfer Ordered Transfer Location: [facility] kdr Reason: Higher level of care kdr Condition: Fair kdr Problem: new kdr Symptoms: have improved kdr Accepting Physician: SONU(07/08/22 23:40) reyna Diagnosis - Rectal bleeding status post hemorrhoidal banding kdr Forms: - Medication Reconciliation Form kdr - SBAR form kdr Signatures: Dispatcher [employer] Maylin Martinez RN RN kl Rittger, Kevin, MD MD kdr Rees, Jessica, RN RN Kaela Argueta PA-C PA-C sb4 Corrections: (The following items were deleted from the chart) 07/08 22:59 22:54 Platelets, Leukored Pheresis ordered. EDMS EDMS 23:40 22:17 FF kdr kl
[2022-07-08 22:47] LABS: Protime INR 1.04
[2022-07-09 00:17] VITALS: TEMP 98.6
[2022-07-09 00:21] VITALS: BP 138/80; O2SAT 99
== END 2022-07-08 23:40 | disposition short-term general hospital (02) ==
LOC: ER 19:53
DX: K62.5 Hemorrhage of anus and rectum (principal); Z98.890 Other specified postprocedural states; Z20.822 Contact with and (suspected) exposure to COVID-19; Z88.1 Allergy status to other antibiotic agents; Z88.5 Allergy status to narcotic agent; Z88.8 Allergy status to other drugs, medicaments and biological substances
CPT/HCPCS: 36415; 80053; 83690; 85025; 85610; 86850; 86900; 86901; 87811; 99285

== ENCOUNTER 2023-05-24 08:30 | Day surgery (SDC) | payer OTHER ==
[2023-05-24 08:33] LABS: Absolute Lymphocytes (CBC) 2.1 K/uL (0.7-4.9); Hematocrit 38.6 % (36.0-45.0); Lymphocytes % 36.6 % (15.3-44.8); MCV 92.1 fL (80-100); MPV 6.7 fL (7.6-11.3); Platelets 315 thou/uL (152-406); RBC Red Blood Cell Count 4.19 M/uL (3.86-4.86)
--- NOTE | 2023-05-24 08:37 | RAD REPORT ---
EXAM DESCRIPTION: Izzy Casiano (2 Views)05/24/2023 8:31 am CLINICAL HISTORY: Preop for gallbladder surgery COMPARISON: 2019 FINDINGS: The lungs appear clear of acute infiltrate. The heart is normal size IMPRESSION: No acute abnormalities displayed
[2023-05-24 08:40] LABS: ALT/SGPT 23 U/L (13-56); AST/SGOT 17 U/L (15-37); Albumin 3.6 g/dL (3.4-5.0); Alkaline Phosphatase 74 U/L (45-117); BUN Blood Urea Nitrogen 14 mg/dL (7-18); Bicarbonate 29 mEq/L (21-32); Bilirubin Direct < 0.1 mg/dL (0-0.2); Bilirubin Indirect, Calculated ND mg/dL (0.2-0.8); Bilirubin Total 0.3 mg/dL (0.2-1.0); Glomerular Filtration Rate 72 ml/min (=/>90); Glucose Level 109 mg/dL (74-106); Lipase 55 U/L (13-75); Potassium 4.2 mEq/L (3.5-5.1); Protein, Total 7.1 g/dL (6.4-8.2); Sodium Level 141 mEq/L (136-145)
[2023-05-24] MEDS ORDERED: Ringers Lactate 1,000 ML IV ONE (09:18)
[2023-05-24] MEDS ORDERED: KETOROLAC 30 MG/ML INJ ONE (10:27)
[2023-05-24] MEDS ORDERED: MIDAZOLAM HCL 2 MG/2 ML INJ ONE (10:27)
[2023-05-24] MEDS ORDERED: propofoL 200 MG/20 ML VIAL IV ONE (10:27)
[2023-05-24] MEDS ORDERED: FENTANYL CITR 100 MCG/2 ML ONE (10:27)
[2023-05-24] MEDS ORDERED: dexAMETHasone 10 MG/ML VIAL ONE (10:27)
[2023-05-24] MEDS ORDERED: BUPIVACAINE 0.5% PF 10 ML VIAL ONE (10:27)
[2023-05-24] MEDS ORDERED: ROCURONIUM 50 MG/5 ML VIAL IV ONE (10:28)
[2023-05-24] MEDS ORDERED: LIDOCAINE 2% MPF 5 ML VIAL ONE (10:28)
[2023-05-24] MEDS ORDERED: ONDANSETRON 4 MG/2 ML VIAL ONE (10:31)
[2023-05-24] MEDS ORDERED: CLINDAMYCIN 300 MG/NS 50 ML IV 50 ML IV ONE (11:00)
[2023-05-24] MEDS ORDERED: CLINDAMYCIN 300MG D5W 300 MG/50 ML BAG IV ONE (11:00)
[2023-05-24] MEDS ORDERED: GLYCOPYRROLATE 0.2 MG/ML SYR ONE ×2 (11:26→11:35)
--- NOTE | 2023-05-24 11:27 | P.BOP ---
Preoperative diagnosis: symptomatic cholelithiasis Postoperative diagnosis: same Primary procedure: Laparoscopic cholecystectomy Obstetrics And Gynecology Professor: Gwen Mosqueda (Megan) Estimated blood loss: <10cc Specimen: gb Findings: as above Anesthesia: General Complications: None Transferred to: Recovery Room Condition: Good
[2023-05-24] MEDS ORDERED: NEOSTIGMINE 1 MG/ML -10 ML VIAL ONE (11:36)
[2023-05-24] MEDS ORDERED: Mastisol Adhesive Liq ONE (11:41)
[2023-05-24] MEDS ORDERED: PROMETHAZINE INJ 25 MG/ML AMP ONE (12:28)
[2023-05-24] MEDS ORDERED: HYDROMORPHONE HCL 1 MG/ML INJ ONE (12:41)
[2023-05-24] MEDS ORDERED: TRAMADOL 37.5mg/APAP 325mg PER TAB ONE (13:18)
[2023-05-24 13:38] VITALS: BP 120/64; TEMP 96.5; O2SAT 97
--- NOTE | 2023-05-24 14:17 | OP ---
Date of Procedure: 05/24/2023 Surgeon: Hugo Monsivais MD Environmental Inspector: KIM Cole Preoperative Diagnosis: Symptomatic cholelithiasis. Postoperative Diagnosis: Symptomatic cholelithiasis. Procedure: Laparoscopic cholecystectomy. Estimated Blood Loss: Less than 10 cc. Specimen: Gallbladder. Anesthesia: General plus local. Complications: None. Indication: This is the case of a 53-year-old patient, who comes to us with above diagnosis. Fully explained the benefits, alternatives, and risks of laparoscopic possible open cholecystectomy, which include, but not limited to, infection, bleeding, damage to adjacent structures, anesthesia complicat ion, choledocholithiasis, bile leak, pancreatitis, ND, and even . She also understands this may not relieve any symptoms. She might need more than one surgical intervention. She understood, sign ed a consent. Description Of Procedure: Patient was brought to the operating room, placed in supine position. Ane sthesia was done without complication. Abdominal area was prepped and draped in usual sterile fashio n. Marcaine 0.5% was injected for local anesthetic. Since the patient has a midline incision in the lower abdomen, we proceeded to stay in the upper abdomen. So we made a supraumbilical incision. In cision was carried down to fascia, which was opened under direct vision. Peritoneum was encountered, opened under direct vision. Vicryl #1 placed inside the fascia. Josefa trocar was carefully introd uced. Pneumoperitoneum was obtained. I placed three more trocars, 5 mm each one of them, one in epi gastric area, two in the right upper quadrant using same technique, which consisted of local anesthet ic, sharp incision of the skin and introduction of the trocars under direct vision. This allowed me to put a grasper in the fundus of the gallbladder, another grasper in the infundibulum, retracting th e gallbladder in the inferolateral fashion exposing the triangle of Calot, obtaining critical view. Cystic duct and cystic artery were clearly isolated, freed circumferentially and a connection between those and the gallbladder were clearly identified. I proceeded to ligate those by using at least 3 clips proximal, 1 clip distal, ligation in the middle. Same was done with the cystic artery. No kulwinder e leak. No bleeding. The gallbladder was removed from liver using Bovie cauterizer and removed from abdominal cavity using EndoCatch through the umbilical incision. Area was inspected once again. No bile leak. No bleeding. Clips were intact. At that moment, I proceeded to remove the trocars unde r direct vision. Deflated the pneumoperitoneum. Closed the fascia with #1 Vicryl, irrigated subcuta neous tissue, closed that with 3-0 chromic and the skin in a subcuticular fashion with 3-0 chromic an d Steri-Strips on top. Sponge counts and instrument counts were correct. Patient tolerated the proc edure well. Patient was sent to Recovery in stable condition. BIPIN/JAYASHREE Voice ID: [id number] Report ID: [id number]
--- NOTE | 2023-05-24 14:23 | DS ---
Date of Discharge: 05/24/2023 Diagnosis: Symptomatic cholelithiasis. Procedure: Laparoscopic cholecystectomy. Disposition: Home. Activity: As tolerated. No heavy lifting. Condition: Stable. Plan: Follow up in my office in 1 week. Call for appointment [phone]. Keep area dry for 48 hours, then may shower. Keep Steri-Strip intact. BIPIN/JAYASHREE Voice ID: [id number] Report ID: [id number]
--- NOTE | 2023-05-25 07:52 | EKG ---
Test Date: 2023-05-24 Test Time: 08:12:00 Sports Agent: FELIZ MEASUREMENT RESULTS: Intervals: Rate: 75 MI: 178 QRSD: 76 QT: 372 QTc: 415 [place]: P: 43 MI: 178 QRS: 49 T: 47 INTERPRETIVE STATEMENTS: Normal sinus rhythm Normal ECG Compared to ECG 05/23/2014 16:18:47 No significant changes Electronically Signed On 05-25-23 07:49:58 CDT by José Miguel Peck
== END 2023-05-24 13:25 | disposition home or self-care (01) ==
LOC: OR 08:30
PROVIDERS: ATTEND Surgery
PROC: 0FT44ZZ Resection of Gallbladder, Percutaneous Endoscopic Approach (ICD-10-PCS; principal; 2023-05-24 11:30)
DX: K80.20 Calculus of gallbladder without cholecystitis without obstruction (principal); K81.1 Chronic cholecystitis; E78.00 Pure hypercholesterolemia, unspecified; M19.90 Unspecified osteoarthritis, unspecified site; B15.9 Hepatitis A without hepatic coma
CPT/HCPCS: 36415; 71046; 80048; 80076; 83690; 85025; 88304; 93005; J1100; J1170; J2001; J2250; J2405; J2550; J2704; J2710; J3010; J3490; J7120